=== PATIENT | female | born 1990 | race African-American/Black ===

== ENCOUNTER 2016-08-04 21:49 | Emergency (ER) | payer OTHER ==
[~2016-08-04] VITALS: Ht 160 cm; Wt 84.5 kg
[~2016-08-04 21:49] MED LIST: ALBU17I INH; LEVEMIR SC
[2016-08-04 21:50] VITALS: BP 149/88; PULSE 78; RESP 16; TEMP 97.8; O2SAT 99
[2016-08-04 23:27] VITALS: BP 118/74; PULSE 100; RESP 18; O2SAT 99
[2016-08-04] MEDS ORDERED: SODIUM CHLOR 0.9% 1000 ML INJ 1,000 ML IV SCH (23:37)
--- NOTE | 2016-08-04 23:38 | PD ---
HPI Chief Complaint: GI Complaint Time Seen by Provider: 23:15 Travel History International Travel<30 days: No Contact w/Intl Traveler<30days: No Traveled to known affect area: No History of Present Illness HPI Said 26 year-old woman with a history diabetes who presents to the emergency department complaining of feeling poorly. She'll history diabetes and is not on medicines for quite some time. She took injectable insulin the past. She has not taken it and months because of insurance reasons. She states she was feeling well until about a week ago she started getting headaches. She's been feeling poorly since then. She had nausea and vomiting for the past 3 days. She states she came in today because she just felt overall worse. She also found out she was . Her last menstrual period was July 03. She's never been before. She endorses some vaginal irritation and discharge symptoms times months. She feels like she has a yeast infection. No other complaints. History Past Medical History Narrative Medical Diabetes Asthma Tetanus Vaccination: Unknown Influenza Vaccination: No : 1 Social History Alcohol Use: Yes (RARE) Tobacco Use: No Allergies-Medications (Allergen,Severity, Reaction): Coded Allergies: PEANUTS (Unverified Allergy, Severe, 08/04/16) FEELS BAD Codeine (Verified Allergy, Intermediate, Rash, 08/04/16) Egg Allergy (Unverified Allergy, Intermediate, 08/04/16) FEELS BAD Hydrocodone (Verified Allergy, Intermediate, Itching, 08/04/16) Reported Meds & Prescriptions Reported Meds & Active Scripts Active No Active Prescriptions or Reported Medications Review of Systems Except as stated in HPI: all other systems reviewed are Neg Physical Exam Narrative GENERAL: Well-appearing 26 year-old woman, no acute distress. SKIN: Focused skin assessment warm/dry. HEAD: Atraumatic. Normocephalic. CARDIOVASCULAR: Regular rate and rhythm. No murmur appreciated. RESPIRATORY: No accessory muscle use. Clear to auscultation. Breath sounds equal bilaterally. GASTROINTESTINAL: Abdomen soft, non-tender, nondistended. Hepatic and splenic margins not palpable. MUSCULOSKELETAL: No obvious deformities. No clubbing. No cyanosis. No edema. NEUROLOGICAL: Awake and alert. No obvious cranial nerve deficits. Motor grossly within normal limits. Normal speech. PSYCHIATRIC: Appropriate mood and affect; insight and judgment normal. Data Data Last Documented VS Vital Signs Date Time Temp Pulse Resp B/P Pulse Ox O2 Delivery O2 Flow Rate FiO2 08/04/16 23:27 100 18 118/74 99 Room Air 08/04/16 21:50 97.8 Orders Beta Hcg (Quant/Titer) (08/04/16 23:37) Complete Blood Count With Diff (08/04/16 23:37) Comprehensive Metabolic Panel (08/04/16 23:37) Iv Access Insert/Monitor (08/04/16 23:37) Ecg Monitoring (08/04/16 23:37) Oximetry (08/04/16 23:37) Sodium Chlor 0.9% 1000 Ml Inj (Ns 1000 M (08/04/16 23:37) Sodium Chloride 0.9% Flush (Ns Flush) (08/04/16 23:45) Ed Poc Ultrasound (08/04/16 23:37) Sodium Chlor 0.9% 1000 Ml Inj (Ns 1000 M (08/04/16 23:45) Urinalysis - C+S If Indicated (08/04/16 23:49) Urine Culture (08/04/16 23:30) Labs Laboratory Tests Test 08/04/16 08/04/16 23:25 23:30 White Blood Count 11.0 TH/MM3 Red Blood Count 4.94 MIL/MM3 Hemoglobin 12.3 GM/DL Hematocrit 38.6 % Mean Corpuscular Volume 78.2 FL Mean Corpuscular Hemoglobin 25.0 PG Mean Corpuscular Hemoglobin 32.0 % Concent Red Cell Distribution Width 16.1 % Platelet Count 297 TH/MM3 Mean Platelet Volume 8.9 FL Neutrophils (%) (Auto) 52.3 % Lymphocytes (%) (Auto) 36.8 % Monocytes (%) (Auto) 7.7 % Eosinophils (%) (Auto) 2.4 % Basophils (%) (Auto) 0.8 % Neutrophils # (Auto) 5.8 TH/MM3 Lymphocytes # (Auto) 4.0 TH/MM3 Monocytes # (Auto) 0.8 TH/MM3 Eosinophils # (Auto) 0.3 TH/MM3 Basophils # (Auto) 0.1 TH/MM3 CBC Comment DIFF FINAL Differential Comment Sodium Level 132 MEQ/L Potassium Level 3.4 MEQ/L Chloride Level 96 MEQ/L Carbon Dioxide Level 24.1 MEQ/L Anion Gap 12 MEQ/L Blood Urea Nitrogen 4 MG/DL Creatinine 0.81 MG/DL Estimat Glomerular Filtration 105 ML/MIN Rate Random Glucose 386 MG/DL Calcium Level 9.1 MG/DL Total Bilirubin 0.3 MG/DL Aspartate Amino Transf 77 U/L (AST/SGOT) Alanine Aminotransferase 113 U/L (ALT/SGPT) Alkaline Phosphatase 70 U/L Total Protein 8.0 GM/DL Albumin 3.7 GM/DL Human Chorionic Gonadotropin, 141 MIU/ML Quant Urine Color LIGHT-YELLOW Urine Turbidity CLEAR Urine pH 5.5 Urine Specific Burwell 1.045 Urine Protein NEG mg/dL Urine Glucose (UA) 1000 mg/dL Urine Ketones NEG mg/dL Urine Occult Blood NEG Urine Nitrite NEG Urine Bilirubin NEG Urine Urobilinogen LESS THAN 2.0 MG/DL Urine Leukocyte Esterase LARGE Urine RBC 27 /hpf Urine WBC 41 /hpf Urine Squamous Epithelial 2 /hpf Cells Urine Bacteria RARE /hpf Urine Mucus FEW /lpf Microscopic Urinalysis Comment CULTURE INDICATED MDM Medical Decision Making Medical Screen Exam Complete: Yes Emergency Medical Condition: Yes Interpretation(s) LABS: CBC unremarkable. CMP unremarkable. HCG 141. UA Red blood cells and white blood cells, elevated glucose. Differential Diagnosis Dehydration, infection, electrolyte abnormalities, , other Narrative Course Medical decision making This 26 old woman who presents to the emergency department with untreated diabetes, new , with headache symptoms of headache, vomiting, weakness , abdominal pain, likely related to and dehydration and hyperglycemia. We'll check labs, bedside ultrasound, urinalysis, IV fluids, reassess. Diagnosis Primary Impression: Qualified Code: Z3A.01 - Less than 8 weeks gestation of Additional Impression: Uncontrolled diabetes mellitus Qualified Code: E11.65 - Uncontrolled type 2 diabetes mellitus without complication, with long-term current use of insulin Referrals: Garrett Albarado II, MD 1 week Additional Instructions: Take Levemir 10 units subcutaneous insulin at night as discussed. Check blood sugar twice daily as discussed. Follow-up with an front desk specialist at the first available appointment. Return to the emergency department for any new or worsening symptoms. Med/Other Pt SpecificInfo: Prescription(s) given Scripts Blood Glucose Monitoring W/Device 1 Kit Kit #1 KIT .ROUTE DIRECTED Ref 0 Please dispense one glucometer with testing strips and lancets. Prov:Olegario Bourne MD 08/05/16 Insulin Detemir Inj (Levemir Inj)1,000 unit/ 10 ML Vial10 Units SQ HS #1 VIAL Ref 0 Do not mix with any other Insulin. Prov:Olegario Bourne MD 08/05/16 Disposition: 01 DISCHARGE HOME Condition: Stable Olegario Bourne MD August 04, 2016 23:38
[2016-08-04] MEDS ORDERED: SODIUM CHLOR 0.9% 1000 ML INJ 1,000 ML IV ONE (23:45)
[2016-08-04] MEDS ORDERED: SODIUM CHLORIDE 0.9% FLUSH 10 ML FLUSH IV FLUSH PRN (23:45)
[2016-08-05 00:06] LABS: AUTOMATED NEUTROPHIL # 5.8 TH/MM3 (1.8-7.7); BASOPHIL # 0.1 TH/MM3 (0-0.2); BASOPHIL % 0.8 % (0.0-2.0); EOSINOPHIL # 0.3 TH/MM3 (0-0.4); EOSINOPHIL % 2.4 % (0.0-4.0); HEMATOCRIT 38.6 % (35.0-46.0); HEMO FLAGS DIFF FINAL; LYMPH % 36.8 % (9.0-44.0); MEAN CELL VOLUME 78.2 FL (80.0-100.0); MONO % 7.7 % (0.0-8.0); NEUT % 52.3 % (16.0-70.0); PLATELET COUNT 297 TH/MM3 (150-450); RED BLOOD COUNT 4.94 MIL/MM3 (4.00-5.30); RED CELL DISTRIBUTION WIDTH 16.1 % (11.6-17.2)
[2016-08-05 00:28] LABS: ANION GAP 12 MEQ/L (5-15); AST (GOT) 77 U/L (15-37); BICARBONATE 24.1 MEQ/L (21.0-32.0); BLOOD UREA NITROGEN 4 MG/DL (7-18); CHLORIDE 96 MEQ/L (98-107); GLOMERULAR FILTRATION RATE 105 ML/MIN (>89); POTASSIUM 3.4 MEQ/L (3.5-5.1); SODIUM (NA) 132 MEQ/L (136-145)
[2016-08-05 00:33] LABS: ALKALINE PHOSPHATASE 70 U/L (45-117); ALT (GPT) 113 U/L (10-53); BETA HCG QUANT 141 MIU/ML (0-5); TOTAL BILIRUBIN ADULT 0.3 MG/DL (0.2-1.0)
[2016-08-05 00:52] LABS: BACTERIA, URINE RARE /hpf; BLOOD, URINE NEG (NEG); COMMENT (UR) CULTURE INDICATED; CULTURE IF INDICATED CULTURE INDICATED; GLUCOSE,URINE 1000 mg/dL (NEG); KETONE, URINE NEG (NEG); MUCUS URINE FEW /lpf (OCC); NITRITE,URINE NEG (NEG); PH, URINE 5.5 (5.0-8.5); SQUAMOUS EPITHELIAL CELL URINE 2 /hpf (0-5); URINE COLOR LIGHT-YELLOW (YELLW/STRAW)
[2016-08-05] MEDS ORDERED: INSULIN DETEMIR 100 UNITS/ML VIAL SQ STA (00:58)
[2016-08-05] MEDS ORDERED: LEVEMIR SQ (01:03)
[2016-08-05] MEDS ORDERED: BLOOD GLUCOSE M1 KIT (01:04)
== END 2016-08-05 03:15 | disposition home or self-care (01) ==
LOC: NEPC 21:49
DX: O24.311 Unspecified pre-existing diabetes mellitus in pregnancy, first trimester (principal); E11.65 Type 2 diabetes mellitus with hyperglycemia; O23.41 Unspecified infection of urinary tract in pregnancy, first trimester; B96.1 Klebsiella pneumoniae [K. pneumoniae] as the cause of diseases classified elsewhere; Z3A.01 Less than 8 weeks gestation of pregnancy; Z79.4 Long term (current) use of insulin
CPT/HCPCS: 80053; 81001; 84702; 85025; 87077; 87086; 87186; 96360; 96361; 96372; 99284; J7030

== ENCOUNTER 2016-08-31 11:14 | Inpatient (IN) | payer MEDICAID, OTHER ==
[~2016-08-31 11:14] MED LIST changes: -ALBU17I INH; +BLOOD GLUCOSE M1 KIT; -LEVEMIR SC; +LEVEMIR SQ
[2016-08-31] MEDS ORDERED: GLUCAGON 1 MG/ML VIAL IM PRN (13:15)
[2016-08-31] MEDS ORDERED: DEXTROSE 50% IN WATER 50 ML VIAL(D50) IV PRN (13:15)
[2016-08-31 13:25] VITALS: BP 136/76; PULSE 108; RESP 20; TEMP 98.2; O2SAT 100
--- NOTE | 2016-08-31 13:27 | HHI.HP ---
HPI Chief Complaint uncontrolled diabetes Date Seen: Aug 31, 2016 Travel History International Travel<30 Days: No Contact w/Intl Traveler<30Days: No Known Affected Area: No History of Present Illness HPI 26 yo G1 with iup at 7w2d by u/s today presented for new ob problem visit in office. Pt concerned about discharge that she has had come and go for 3-4 months, yellow, + odor, + itching. She has a h/o CT with neg test or reinfection Dec 2015. Cx collected in clinic; BV on wet prep. Pt diabetic since age 20, Class C diabetic; she has never had good control. She has been off of medications for several months as she was uninsured. Was seen in ED on 07/30/16 and noted to have glucose in 300's. Was given levamir 10 units qhs and told to f/u within a week with ob. She has not been measuring home accucheck over the last month. She has been having headaches for a week. She has been having nausea. She has a h/o asthma; had a recent cold and was given azithromycin. She is allergic to cats and has one as a pet; had an asthma attack 3 days ago, used rescue inhaler w good relief. Para: 0 : 1 History Past Medical History Narrative Medical Class C diabetes Asthma- mild intermittent Mild cervical dysplasia- colpo 05/2015 Obstetric History Obstetric History G1 Past Surgical History Narrative Surgical Breast implants Family History Narrative Family History diabetes, htn Social History Alcohol Use: No Tobacco Use: No Substance Abuse: No Allergies-Medications (Allergen,Severity, Reaction): Coded Allergies: PEANUTS (Unverified Allergy, Severe, 08/04/16) FEELS BAD Codeine (Verified Allergy, Intermediate, Rash, 08/04/16) Egg Allergy (Unverified Allergy, Intermediate, 08/04/16) FEELS BAD Hydrocodone (Verified Allergy, Intermediate, Itching, 08/04/16) Home Meds Active Scripts Blood Glucose Monitoring W/Device 1 Kit Kit #1 KIT .ROUTE DIRECTED Ref 0 Please dispense one glucometer with testing strips and lancets. Prov:Olegario Bourne MD 08/05/16 Insulin Detemir Inj (Levemir Inj)1,000 unit/ 10 ML Vial10 Units SQ HS #1 VIAL Ref 0 Do not mix with any other Insulin. Prov:Olegario Bourne MD 08/05/16 Review of Systems General / Constitutional: No: Fever, Weight Gain, Chills, Other Eyes: No: Diploplia, Blurred Vision, Visual changes, Pain, Photophobia HENT: Headaches, No: Vertigo, Lightheadedness Cardiovascular: No: Irregular Rhythm, Chest Pain or Discomfort, Palpitations, Tachycardia, Syncope, Varicosities, Edema, Cyanosis Respiratory: Cough, No: Short of Breath, Other Gastrointestinal: Nausea, No: Vomiting, Diarrhea Genitourinary: No: Decreased Urinary Output, Oliguria Musculoskeletal: No: Limited ROM, Weakness, Cramping, Edema, Pain Skin: No Rash, No Itching, No Dryness, No Lumps, No Change in Pigmentation, No Change in Nails, No Alopecia, No Lesions Neurologic: No: Weakness, Dizziness, Syncope, Focal Abnormalities, Coordination Problem, Headache, Slurred Speech, Seizures Psychiatric: No: Depression, Suicidal Ideations, Homicidal Ideation Endocrine: No: Heat Intolerance, Cold Intolerance, Polydipsia, Polyuria, Other Physical Exam Vital Signs Date Time Temp Pulse Resp B/P Pulse Ox O2 Delivery O2 Flow Rate FiO2 08/31/16 13:25 98.2 108 20 136/76 100 Narrative GENERAL: Well-nourished, well-developed patient. Obese SKIN: Warm and dry. HEAD: Normocephalic and atraumatic. EYES: No scleral icterus. No injection or drainage. ENT: No nasal drainage noted. Mucous membranes pink. Airway patent. NECK: Supple, trachea midline. No JVD. CARDIOVASCULAR: Regular rate and rhythm without murmurs, gallops, or rubs. RESPIRATORY: Breath sounds equal bilaterally. No accessory muscle use. ABDOMEN/GI: Abdomen soft, non-tender, bowel sounds present, no rebound, no guarding Gravid to 8 weeks size GENITOURINARY: External Genitalia: intact and normal in appearance BUS glands: [-] Cervix:closed thick Membranes: [intact Uterine Contractions: [-] FHT's: + fca on u/s EXTREMITIES: No cyanosis or edema. BACK: Nontender without obvious deformity. No CVA tenderness. NEUROLOGICAL: Awake and alert. Motor and sensory grossly within normal limits. Five out of 5 muscle strength in all muscle groups. Normal speech. Data Data Vital Signs Reviewed: Yes Orders Admit To Inpatient (08/31/16 ) Vital Signs (Adult) KETURAH.QSHIFT (08/31/16 13:10) Activity Oob Ad Theresa (08/31/16 13:10) Diet Ob Consistent Carb (08/31/16 Lunch) Hemoglobin (Hgb) A1c (08/31/16 13:10) Urinalysis - C+S If Indicated (08/31/16 13:10) Comprehensive Metabolic Panel (08/31/16 13:10) Dietary (Dietitian) Consult (08/31/16 ) Consult Firewall Engineer (08/31/16 ) Insulin Human Nph Inj (Novolin N Inj) (09/01/16 08:00) Insulin Human Nph Inj (Novolin N Inj) (08/31/16 17:00) Bedside Glucose KETURAH.CVBG (08/31/16 13:10) Insulin Human Reg Supp Scale (Novolin R (08/31/16 17:00) Bedside Glucose Q15M (08/31/16 13:10) Hypoglycemia 70 Mg/Dl Or < (08/31/16 13:10) Dextrose 50% In Paulette (Vial) Inj (D50w (Vi (08/31/16 13:15) Glucagon Inj (Glucagon Inj) (08/31/16 13:15) Inpatient Certification (08/31/16 ) Specimen To Be Collected PRN (08/31/16 13:10) Insulin Human Regular Inj (Novolin R Inj (09/01/16 08:00) Insulin Human Regular Inj (Novolin R Inj (08/31/16 17:00) ^ Other Nursing Orders (08/31/16 13:20) Total Protein 24hr Urine (08/31/16 13:21) Bedside Glucose . ORDERED (08/31/16 13:21) Acetaminophen (Tylenol) (08/31/16 13:30) Xsguqnec-Zuc-Oughr-Iron Prenat (Stuartna (09/01/16 09:00) Sodium Chloride 0.9% Flush (Ns Flush) (08/31/16 21:00) Sodium Chloride 0.9% Flush (Ns Flush) (08/31/16 13:30) Zolpidem (Ambien) (08/31/16 13:30) Ondansetron Odt (Zofran Odt) (08/31/16 13:30) Ondansetron Inj (Zofran Inj) (08/31/16 13:30) Ob/Psych Drug Screen, Urine (08/31/16 13:21) Assessment/Plan Assessment and Plan 26 yo G1 at 7w2d by u/s today 1) Insulin dependant diabetic being admitted for initiation of nph/reg based on ideal body weight am insulin N14/R7, pm N10/R10 - check fasting and 2 hr pp accucheck and adjust insulin accordingly - 2200 ADA diet, diabetic education and nutrition counseling while in house. ED physician did prescribe glucometer and supplies on 07/30/16 - 24 hour urine collection and [facility] labs for baseline - labs also ordered 2) Asthma- albuterol inhaler. discussed she needs to give cat to someone else as asthma is being exacerbated. Reviewed that asthma can become worse during 3) BV- flagyl, cx pending from clinic Donna Clark MD Aug 31, 2016 13:27
[2016-08-31] MEDS ORDERED: ACETAMINOPHEN 325 MG TAB PO PRN (13:30)
[2016-08-31] MEDS ORDERED: ONDANSETRON HCL 4 MG/2 ML VIAL IV PRN (13:30)
[2016-08-31] MEDS ORDERED: ONDANSETRON ODT 4 MG TAB PO PRN (13:30)
[2016-08-31] MEDS ORDERED: SODIUM CHLORIDE 0.9% FLUSH 10 ML FLUSH IV FLUSH PRN (13:30)
[2016-08-31] MEDS ORDERED: ZOLPIDEM TARTRATE 5 MG TAB PO PRN (13:30)
[2016-08-31] MEDS ORDERED: ALBUTEROL SULFATE 90 MCG/ACT HFA 18 GM INHALER INH PRN (15:45)
[2016-08-31 16:00] VITALS: BP 122/80; PULSE 95; RESP 16; TEMP 96.5; O2SAT 98
[2016-08-31] MEDS: INSULIN HUMAN REGULAR 1,000 UNITS/10 ML VIAL SQ SCH (16:49)
[2016-08-31] MEDS: metroNIDAZOLE 500 MG TAB PO SCH ×2 (16:55→21:00)
[2016-08-31] MEDS: INSULIN HUMAN NPH 1,000 UNITS/10 ML VIAL SQ SCH (17:00)
[2016-08-31 20:00] VITALS: BP 125/74; PULSE 103; RESP 18; TEMP 98.6; O2SAT 98
[2016-08-31 20:20] LABS: AUTOMATED NEUTROPHIL # 7.9 TH/MM3 (1.8-7.7); BASOPHIL % 0.4 % (0.0-2.0); EOSINOPHIL # 0.3 TH/MM3 (0-0.4); EOSINOPHIL % 2.3 % (0.0-4.0); HEMATOCRIT 37.5 % (35.0-46.0); HEMO FLAGS DIFF FINAL; LYMPH % 30.9 % (9.0-44.0); LYMPHOCYTE # 4.1 TH/MM3 (1.0-4.8); MEAN CELL VOLUME 77.1 FL (80.0-100.0); MEAN CORPUSCULAR HEMOGLOBIN 24.6 PG (27.0-34.0); MONO % 6.7 % (0.0-8.0); NEUT % 59.7 % (16.0-70.0); PLATELET COUNT 334 TH/MM3 (150-450); RED BLOOD COUNT 4.86 MIL/MM3 (4.00-5.30); RED CELL DISTRIBUTION WIDTH 16.2 % (11.6-17.2); WHITE BLOOD COUNT 13.2 TH/MM3 (4.0-11.0)
[2016-08-31 20:49] LABS: ANION GAP 11 MEQ/L (5-15); AST (GOT) 45 U/L (15-37); BICARBONATE 23.8 MEQ/L (21.0-32.0); BLOOD UREA NITROGEN 8 MG/DL (7-18); CHLORIDE 99 MEQ/L (98-107); GLOMERULAR FILTRATION RATE 152 ML/MIN (>89); POTASSIUM 3.3 MEQ/L (3.5-5.1); SODIUM (NA) 134 MEQ/L (136-145)
[2016-08-31 20:50] LABS: ALT (GPT) 94 U/L (10-53)
[2016-08-31 20:52] LABS: ALKALINE PHOSPHATASE 56 U/L (45-117); TOTAL BILIRUBIN ADULT 0.3 MG/DL (0.2-1.0)
[2016-08-31 20:58] LABS: FREE T4 1.16 NG/DL (0.76-1.46)
[2016-08-31 22:33] LABS: HEMOGLOBIN A1a 1.4 %; HEMOGLOBIN A1b 1.3 %; HEMOGLOBIN Ao 76.3 %; HEMOGLOBIN F 1.8 %; HEMOGLOBIN LA1C 2.6 %; HEMOGLOBIN P3 4.3 %
[2016-08-31] MEDS: INSULIN NovoLIN REGULAR SUPPLEMENTAL SCALE SQ SCH (22:52)
[2016-08-31] MEDS: SODIUM CHLORIDE 0.9% FLUSH 10 ML FLUSH IV FLUSH SCH (22:53)
[2016-09-01] VITALS: BP 117/56; PULSE 82; RESP 16; TEMP 97.5; O2SAT 100
[2016-09-01] MEDS: INSULIN HUMAN NPH 1,000 UNITS/10 ML VIAL SQ SCH ×2 (08:00→17:38)
[2016-09-01] MEDS: INSULIN HUMAN REGULAR 1,000 UNITS/10 ML VIAL SQ SCH ×2 (08:00→17:37)
[2016-09-01] MEDS: INSULIN NovoLIN REGULAR SUPPLEMENTAL SCALE SQ SCH ×3 (08:00→17:00)
[2016-09-01] MEDS: MULTIVIT/MIN/PREN/FOL AC/IRON PRENATAL TAB PO SCH (08:46)
[2016-09-01] MEDS: metroNIDAZOLE 500 MG TAB PO SCH ×2 (08:46→20:33)
[2016-09-01] MEDS: SODIUM CHLORIDE 0.9% FLUSH 10 ML FLUSH IV FLUSH SCH ×2 (08:46→20:33)
[2016-09-01 08:50] VITALS: BP 114/59; PULSE 68; RESP 16; TEMP 99; O2SAT 99
[2016-09-01 12:00] VITALS: BP 113/67; PULSE 96; RESP 16; TEMP 96.7; O2SAT 98
[2016-09-01 16:40] VITALS: BP 123/58; PULSE 103; RESP 16; TEMP 97.2; O2SAT 100
[2016-09-01] MEDS ORDERED: INSULIN HUMAN REGULAR 1,000 UNITS/10 ML VIAL SQ ONE (17:30)
[2016-09-01 20:00] VITALS: BP 111/65; PULSE 98; RESP 18; TEMP 99.1; O2SAT 98
[2016-09-02] VITALS: BP 123/71; PULSE 91; RESP 18; TEMP 99.1; O2SAT 98
[2016-09-02 04:00] VITALS: BP 126/69; PULSE 80; RESP 18; TEMP 98.6; O2SAT 99
[2016-09-02] MEDS: INSULIN HUMAN REGULAR 1,000 UNITS/10 ML VIAL SQ SCH ×2 (08:00→17:00)
[2016-09-02] MEDS: INSULIN NovoLIN REGULAR SUPPLEMENTAL SCALE SQ SCH ×3 (08:00→17:00)
[2016-09-02] MEDS: MULTIVIT/MIN/PREN/FOL AC/IRON PRENATAL TAB PO SCH (08:23)
[2016-09-02] MEDS: metroNIDAZOLE 500 MG TAB PO SCH ×2 (08:23→21:55)
[2016-09-02] MEDS: SODIUM CHLORIDE 0.9% FLUSH 10 ML FLUSH IV FLUSH SCH ×2 (08:24→21:00)
[2016-09-02 08:42] VITALS: BP_SYST 103; BP_SYST 98; BP_DIAS 52; BP_DIAS 57; PULSE 83; RESP 16; TEMP 98; O2SAT 98
[2016-09-02] MEDS: INSULIN HUMAN NPH 1,000 UNITS/10 ML VIAL SQ SCH ×2 (09:15→17:00)
--- NOTE | 2016-09-02 09:42 | PD.OB.ANTE ---
Subjective Diagnosis: (1) Uncontrolled diabetes mellitus (2) Interval History This note is for long visit on SaturdaySeptember 01 Patient very cooperative with nurses and me. Desires to get diabetes under control She was a [employer] student who dropped out after two years due to monetary issues and has significant loans. She was working until this diagnosis of severe IDDM and early . She has lost her insurance and has been unable to afford insulin. FOB not involved. Family support sounds variable. She hints at severe familial stress and complications. Hgb A1c was 12. Started on a baseline regimen Saturday and leaving alone on Saturday to obtain some baseline response Documented single IUP in our office. 7 + weeks EGA Too early to assess heart, Risk of malformations significant. Plan is to keep several days and determine a regimen. Also to get Healthy Start and Case manaagement involved to cover her medications and assess social well being. Objective Vital Signs Vital Signs Date Time Temp Pulse Resp B/P Pulse Ox O2 Delivery O2 Flow Rate FiO2 09/02/16 08:42 98.0 83 16 98/52 98 103/57 09/02/16 04:00 98.6 80 18 126/69 99 09/02/16 00:00 99.1 91 18 123/71 98 09/01/16 20:00 99.1 98 18 111/65 98 09/01/16 16:40 97.2 103 16 123/58 100 09/01/16 12:00 96.7 96 16 113/67 98 Physical Exam GENERAL: Well-nourished, well-developed patient. CARDIOVASCULAR: Regular rate and rhythm without murmurs, gallops, or rubs. RESPIRATORY: Breath sounds equal bilaterally. No accessory muscle use. ABDOMEN/GI: Abdomen soft, non-tender. Fundus: [-] GENITOURINARY: External Genitalia: intact and normal in appearance Cervix: [-] Dilatation: [-] Effacement: [-] Station: [-] Presentation: [-] Membranes: [-] Uterine Contractions: [-] FHT's: Category: [-] Baseline: [-] Reactive: [-] Variability: [-] Decels: [-] EXTREMITIES: No cyanosis or edema, non-tender, without signs of DVT. Assessment and Plan Assessment and Plan 26 yo G1 at 7w2d by u/s today 1) Insulin dependant diabetic being admitted for initiation of nph/reg based on ideal body weight am insulin N14/R7, pm N10/R10 - check fasting and 2 hr pp accucheck and adjust insulin accordingly - 2200 ADA diet, diabetic education and nutrition counseling while in house. ED physician did prescribe glucometer and supplies on 07/30/16 - 24 hour urine collection and [facility] labs for baseline - labs also ordered 2) Asthma- albuterol inhaler. discussed she needs to give cat to someone else as asthma is being exacerbated. Reviewed that asthma can become worse during 3) BV- flagyl, cx pending from clinic Pegyg Bradshaw MD Sep 02, 2016 09:42
--- NOTE | 2016-09-02 11:06 | PD.OB.ANTE ---
Subjective Diagnosis: (1) Uncontrolled diabetes mellitus (2) Interval History Nauseated early am either from low suogar or sugars ranged 145-280 (covered with 6 reg) She has not been below 300 for some time and is encouraged Objective Vital Signs Vital Signs Date Time Temp Pulse Resp B/P Pulse Ox O2 Delivery O2 Flow Rate FiO2 09/02/16 08:42 98.0 83 16 98/52 98 103/57 09/02/16 04:00 98.6 80 18 126/69 99 09/02/16 00:00 99.1 91 18 123/71 98 09/01/16 20:00 99.1 98 18 111/65 98 09/01/16 16:40 97.2 103 16 123/58 100 09/01/16 12:00 96.7 96 16 113/67 98 Physical Exam GENERAL: Well-nourished, well-developed patient. CARDIOVASCULAR: Regular rate and rhythm without murmurs, gallops, or rubs. RESPIRATORY: Breath sounds equal bilaterally. No accessory muscle use. ABDOMEN/GI: Abdomen soft, non-tender. EXTREMITIES: No cyanosis or edema, non-tender, without signs of DVT. Assessment and Plan Problem List: (1) Uncontrolled diabetes mellitus Status: Acute (2) Status: Acute Assessment and Plan 26 yo G1 at 7w4 1) Insulin dependant diabetic being admitted for initiation of nph/reg based on ideal body weight am insulin N14/R7, pm N10/R10 - check fasting and 2 hr pp accucheck and adjust insulin accordingly - 2200 ADA diet, diabetic education and nutrition counseling while in house. ED physician did prescribe glucometer and supplies on 07/30/16 - 24 hour urine collection and [facility] labs for baseline obtaining haelthy start and case management to assure access to medications. staying through saturday or saturday Peggy Bradshaw MD Sep 02, 2016 11:05
[2016-09-02 12:48] VITALS: BP_SYST 108; BP_SYST 113; BP_DIAS 64; BP_DIAS 78; PULSE 80; PULSE 81; RESP 16; TEMP 97.2; TEMP 97.4; O2SAT 96; O2SAT 98
[2016-09-02 16:00] VITALS: BP 120/65; PULSE 103; RESP 16; TEMP 96.9; O2SAT 97
[2016-09-02 20:00] VITALS: BP 118/68; PULSE 88; RESP 18; TEMP 97.7; O2SAT 98
[2016-09-03] VITALS: BP 123/68; PULSE 91; RESP 18; TEMP 97; O2SAT 98
[2016-09-03 05:00] VITALS: BP 119/56; PULSE 83; RESP 18; TEMP 96.4; O2SAT 97
[2016-09-03 08:00] VITALS: BP 117/80; PULSE 97; RESP 16; TEMP 97.4; O2SAT 99
--- NOTE | 2016-09-03 08:49 | PD.OB.ANTE ---
Subjective Diagnosis: (1) Uncontrolled diabetes mellitus (2) Interval History no new complaints, insulin 14/7 01/08, FS improving 151/196 198/159. A1 C was 12 Objective Vital Signs Vital Signs Date Time Temp Pulse Resp B/P Pulse Ox O2 Delivery O2 Flow Rate FiO2 09/03/16 08:00 97.4 97 16 117/80 99 09/03/16 05:00 96.4 83 18 119/56 97 09/03/16 00:00 97.0 91 18 123/68 98 09/02/16 20:00 97.7 88 18 118/68 98 09/02/16 16:00 96.9 103 16 120/65 97 09/02/16 12:48 97.4 81 16 108/64 98 Intake & Output 09/03/16 09/03/16 07:00 19:00 Intake Total 1440 ml Balance 1440 ml Intake Oral 1440 ml # Voids 6 Lab & Micro Results noted Physical Exam GENERAL: Well-nourished, well-developed patient. CARDIOVASCULAR: Regular rate and rhythm without murmurs, gallops, or rubs. RESPIRATORY: Breath sounds equal bilaterally. No accessory muscle use. ABDOMEN/GI: Abdomen soft, non-tender. Fundus: [-] GENITOURINARY: External Genitalia: intact and normal in appearance Cervix: [-] Dilatation: [-] Effacement: [-] Station: [-] Presentation: [-] Membranes: [-] Uterine Contractions: [-] FHT's: Category: [-] Baseline: [-] Reactive: [-] Variability: [-] Decels: [-] EXTREMITIES: No cyanosis or edema, non-tender, without signs of DVT. Assessment and Plan Problem List: (1) Uncontrolled diabetes mellitus Status: Acute (2) Status: Acute Assessment and Plan 26 yo G1 at 7w5 1) Insulin dependant diabetic being admitted for initiation of nph/reg based on ideal body weight am insulin N14/R7, pm N10/R10 - check fasting and 2 hr pp accucheck and adjust insulin accordingly - 2200 ADA diet, diabetic education and nutrition counseling while in house. ED physician did prescribe glucometer and supplies on 07/30/16 - 24 hour urine collection and [facility] labs for baseline obtaining haelthy start and case management to assure access to medications. staying through saturday or saturday will increase insulin to 1603/12 Lisa Aguillon MD Sep 03, 2016 08:49
[2016-09-03] MEDS ORDERED: METR-1 PO (08:51)
--- NOTE | 2016-09-03 08:52 | HHI.DCPOC ---
Discharge Care Plan Your Health Problems Are: Fluctuating blood sugars Report Symptoms to Your Doctor -Temperature above 100.5 degrees -Redness, of incision or excessive or foul smelling drainage -Unusual pain or calf pain -Increased vaginal bleeding -Painful or difficulty urinating -Feelings of extreme sadness or anxiety after 2 weeks Goals to Promote Your Health * To prevent worsening of your condition and complications * To maintain your health at the optimal level Directions to Meet Your Goals Take your medications as prescribed Follow your dietary instruction Follow activity as directed Ensure plenty of rest for recovery Drink fluids for hydration Keep your appointments as scheduled Take your immunizations and boosters as scheduled If your symptoms worsen call your PCP, if no PCP go to Urgent Care Center or Emergency Room Smoking is Dangerous to Your Health. Avoid second hand smoke Call the 24-hour crisis hotline for domestic abuse at Lisa Aguillon MD Sep 03, 2016 08:52
--- NOTE | 2016-09-03 09:24 | PD.PN.STU ---
Subjective Remarks Progress: 26 y/o sbf at 7w 5d EGA by U/S presents on day three of admission for glycemic control due to IDDM in . . Pt reports she is still feeling slightly "nauseous and crappy," but is improving since yesterday. Pt also again expressed how much stress she was dealing with in her life, and expressed a desire to see a therapist or counselor to talk about her issues if covered. Pt says that her glucose in the last day has been in the 150-190 mg/ dL range after eating. She hasn't been above 200 mg/dL in the last 24 hrs, which is significant improvement for her. Pt states that she has not yet seen Case Management, Commuter Pilot, or Diabetic Car Dropper. Pt also asked about establishing contact with [facility]. Pt also states that Dr. Aguillon would like to move up her appointment with Dr. Freeman to this week or next instead of 09/20/16 at [facility] due to lack of PCP. Pt bedside blood glucose this morning was 147 mg/dL Objective Vitals Vital Signs Date Time Temp Pulse Resp B/P Pulse Ox O2 Delivery O2 Flow Rate FiO2 09/03/16 08:00 97.4 97 16 117/80 99 09/03/16 05:00 96.4 83 18 119/56 97 09/03/16 00:00 97.0 91 18 123/68 98 09/02/16 20:00 97.7 88 18 118/68 98 09/02/16 16:00 96.9 103 16 120/65 97 09/02/16 12:48 97.4 81 16 108/64 98 Result Diagram: 08/31/16193508/31/161922 Objective Remarks GENERAL: Pleasant, well appearing, well nourished black female CARDIOVASCULAR: Regular rate and rhythm without murmurs, gallops, or rubs. RESPIRATORY: Breath sounds equal bilaterally. No accessory muscle use. GASTROINTESTINAL: Abdomen soft, non-tender, nondistended. MUSCULOSKELETAL: No cyanosis, or edema. Medications and IVs Current Medications Medications (Trade) Dose Ordered Sig/Venkata Route Start Time Stop Time Status Last Admin (NovoLIN R SUPPLEMENTAL SCALE) 1 TIDAC SQ 08/31/16 17:00 09/02/16 17:00 (D50w (Vial) Inj) 50 ml UNSCH PRN IV 08/31/16 13:15 (Glucagon Inj) 1 mg STAT PRN IM 08/31/16 13:15 (Tylenol) 650 mg Q4H PRN PO 08/31/16 13:30 09/01/16 08:46 (Stuartnatal Plus 3 ) 1 tab DAILY PO 09/01/16 09:00 09/02/16 08:23 (NS Flush) 2 ml BID IV FLUSH 08/31/16 21:00 09/02/16 21:00 (NS Flush) 2 ml UNSCH PRN IV FLUSH 08/31/16 13:30 (Ambien) 5 mg HS PRN PO 08/31/16 13:30 (Zofran Odt) 4 mg Q6H PRN PO 08/31/16 13:30 (Zofran Inj) 4 mg Q6H PRN IV 08/31/16 13:30 (Ventolin Hfa Inh) 2 puff Q4H PRN INH 08/31/16 15:45 (Flagyl) 500 mg Q12HR PO 08/31/16 15:45 09/02/16 21:55 (NovoLIN N INJ) 12 units DAILY@17 SQ 09/03/16 17:00 (NovoLIN N INJ) 16 units DAILY@08 SQ 09/03/16 09:00 (NovoLIN R INJ) 12 units DAILY@17 SQ 09/03/16 17:00 (NovoLIN R INJ) 9 units DAILY@08 SQ 09/03/16 09:00 A/P Assessment and Plan Problem List: (1) Uncontrolled diabetes mellitus Status: Acute (2) Status: Acute Assessment and Plan 26 yo G1 at 7w5 1) Insulin dependant diabetic on day three of admission for NPH/regular insulin regimen based on ideal body weight, morning insulin N14/R7, nighttime N10/R10, possible increase to morning to 16/9 and evening 12/12 - continue check fasting and 2 hr pp accucheck and adjust insulin accordingly - 2200 ADA diet in house. ED physician did prescribe glucometer and supplies on 07/30/16 - Obtaining diabetic education and nutrition counseling . - Obtaining 24 hour urine collection and pih labs for baseline - Obtaining healthy start and case management to assure access to medications. Pt will be staying until Saturday - Obtaining counselor/therapist consult for patient's significant life stress. Marty Lovell M3 Sep 03, 2016 09:24 (NovoLIN N INJ) 16 units DAILY@08 SQ 09/03/16 09:00 (NovoLIN R INJ) 12 units DAILY@17 SQ 09/03/16 17:00 (NovoLIN R INJ) 9 units DAILY@08 SQ 09/03/16 09:00 A/P Assessment and Plan Problem List: (1) Uncontrolled diabetes mellitus Status: Acute (2) Status: Acute Assessment and Plan 26 yo G1 at 7w4 1) Insulin dependant diabetic being admitted for initiation of nph/reg based on ideal body weight am insulin N14/R7, pm N10/R10 - check fasting and 2 hr pp accucheck and adjust insulin accordingly - 2200 ADA diet, diabetic education and nutrition counseling while in house. ED physician did prescribe glucometer and supplies on 07/30/16 - 24 hour urine collection and pih labs for baseline obtaining haelthy start and case management to assure access to medications. staying through saturday or saturday Marty Lovell M3 Sep 03, 2016 09:24
[2016-09-03] MEDS: metroNIDAZOLE 500 MG TAB PO SCH ×2 (09:34→20:31)
[2016-09-03] MEDS: MULTIVIT/MIN/PREN/FOL AC/IRON PRENATAL TAB PO SCH (09:34)
[2016-09-03] MEDS: INSULIN HUMAN REGULAR 1,000 UNITS/10 ML VIAL SQ SCH ×2 (09:42→18:13)
[2016-09-03] MEDS: INSULIN NovoLIN REGULAR SUPPLEMENTAL SCALE SQ SCH ×3 (09:43→18:14)
[2016-09-03] MEDS: INSULIN HUMAN NPH 1,000 UNITS/10 ML VIAL SQ SCH ×2 (09:44→18:14)
[2016-09-03] MEDS: SODIUM CHLORIDE 0.9% FLUSH 10 ML FLUSH IV FLUSH SCH ×2 (09:45→20:32)
[2016-09-03 18:30] VITALS: BP 111/70; PULSE 95; RESP 16; TEMP 97.1; O2SAT 98
[2016-09-03 20:45] VITALS: BP 108/72; PULSE 90; RESP 18; TEMP 98; O2SAT 98
[2016-09-04 00:20] VITALS: BP 107/70; PULSE 85; RESP 16; TEMP 97.2; O2SAT 98
[2016-09-04 05:00] VITALS: BP 100/59; PULSE 93; RESP 16; TEMP 98.1; O2SAT 98
[2016-09-04 08:00] VITALS: BP 105/71; PULSE 90; RESP 15; TEMP 98.1; O2SAT 98
[2016-09-04] MEDS: INSULIN NovoLIN REGULAR SUPPLEMENTAL SCALE SQ SCH ×3 (08:00→17:00)
--- NOTE | 2016-09-04 08:02 | PD.OB.ANTE ---
Subjective Diagnosis: (1) Uncontrolled diabetes mellitus (2) Interval History HD 5 Notes rapidly normalizing sugars. Highest was 140 yesterday. She has not yet received a glucometer, accucheck log or strips/lancets to take home still wants to see psychiatry for dysphoria situational depression I am with sertraline, buspirinone, escitalopram... Still needs to see healthy start mild nausea mild elevations in LFTS with negative serology no cramps, bleeding Objective Vital Signs Vital Signs Date Time Temp Pulse Resp B/P Pulse Ox O2 Delivery O2 Flow Rate FiO2 09/04/16 05:00 98.1 93 16 100/59 98 09/04/16 00:20 97.2 85 16 107/70 98 09/03/16 20:45 98.0 90 18 108/72 98 09/03/16 18:30 97.1 95 16 111/70 98 09/03/16 08:00 97.4 97 16 117/80 99 Physical Exam GENERAL: Well-nourished, well-developed patient. CARDIOVASCULAR: Regular rate and rhythm without murmurs, gallops, or rubs. RESPIRATORY: Breath sounds equal bilaterally. No accessory muscle use. ABDOMEN/GI: Abdomen soft, non-tender. Fundus: [-] GENITOURINARY: External Genitalia: intact and normal in appearance Cervix: [-] Dilatation: [-] Effacement: [-] Station: [-] Presentation: [-] Membranes: [-] Uterine Contractions: [-] FHT's: Category: [-] Baseline: [-] Reactive: [-] Variability: [-] Decels: [-] EXTREMITIES: No cyanosis or edema, non-tender, without signs of DVT. Assessment and Plan Problem List: (1) Uncontrolled diabetes mellitus Status: Acute (2) Status: Acute Assessment and Plan 26 yo G1 at 7w6 1) Insulin dependant diabetic being admitted for initiation of nph/reg based on ideal body weight am insulin N14/R7, pm N10/R10 - check fasting and 2 hr pp accucheck and adjust insulin accordingly - 2200 ADA diet, diabetic education and nutrition counseling while in house. ED physician did prescribe glucometer and supplies on 07/30/16 - 24 hour urine collection and pih labs for baseline obtaining haelthy start and case management to assure access to medications. staying for psych and healthy start evaluations must go home with glucometer and log book. will increase insulin to 15/12 03/12 Peggy Bradshaw MD Sep 04, 2016 08:02
[2016-09-04] MEDS: metroNIDAZOLE 500 MG TAB PO SCH ×2 (08:24→20:26)
[2016-09-04] MEDS: MULTIVIT/MIN/PREN/FOL AC/IRON PRENATAL TAB PO SCH (08:24)
[2016-09-04] MEDS: INSULIN HUMAN NPH 1,000 UNITS/10 ML VIAL SQ SCH ×2 (08:28→17:34)
[2016-09-04] MEDS: INSULIN HUMAN REGULAR 1,000 UNITS/10 ML VIAL SQ SCH ×2 (08:28→17:32)
[2016-09-04] MEDS: SODIUM CHLORIDE 0.9% FLUSH 10 ML FLUSH IV FLUSH SCH ×2 (08:30→20:26)
[2016-09-04 12:00] VITALS: BP 106/69; PULSE 90; RESP 16; TEMP 98.5; O2SAT 98
--- NOTE | 2016-09-04 12:10 | PD.CONS ---
Provisional Diagnosis Admission Date Aug 31, 2016 at 12:07 [place] I. Adjustment disorder with depressed mood History of Present Illness Service Psychiatry Consult Requested By Primary Care Physician Seema Stephenson M.D. HPI Patient seen [id number] but did not wish to speak with this physician for long. She preferred to be on the telephone. She does admit to some symptoms of depression, including depressed mood, irritability and tearfulness. She denies any suicidal or homicidal ideation, plan or intention. Her cognition is intact and she exhibits no psychotic symptoms. She is requesting antidepressant medication and this physician suggested Prozac. Patient was in agreement. Review of Systems Except as stated in HPI: all other systems reviewed are Neg Past Family Social History Coded Allergies: PEANUTS (Unverified Allergy, Severe, 08/04/16) FEELS BAD Codeine (Verified Allergy, Intermediate, Rash, 08/04/16) Egg Allergy (Unverified Allergy, Intermediate, 08/04/16) FEELS BAD Hydrocodone (Verified Allergy, Intermediate, Itching, 08/04/16) Active Scripts Metronidazole (Flagyl)500 Mg Upj097 Mg PO Q12HR 4 Days Ref 0 Prov:Lisa Aguillon MD 09/03/16 Blood Glucose Monitoring W/Device 1 Kit Kit #1 KIT .ROUTE DIRECTED Ref 0 Please dispense one glucometer with testing strips and lancets. Prov:Olegario Bourne MD 08/05/16 Insulin Detemir Inj (Levemir Inj)1,000 unit/ 10 ML Vial10 Units SQ HS #1 VIAL Ref 0 Do not mix with any other Insulin. Prov:Olegario Bourne MD 08/05/16 Current Medications Medications (Trade) Dose Ordered Sig/Venkata Route Start Time Stop Time Status Last Admin (NovoLIN R SUPPLEMENTAL SCALE) 1 TIDAC SQ 08/31/16 17:00 09/03/16 18:14 (D50w (Vial) Inj) 50 ml UNSCH PRN IV 08/31/16 13:15 (Glucagon Inj) 1 mg STAT PRN IM 08/31/16 13:15 (Tylenol) 650 mg Q4H PRN PO 08/31/16 13:30 09/01/16 08:46 (Stuartnatal Plus 3 ) 1 tab DAILY PO 09/01/16 09:00 09/04/16 08:24 (NS Flush) 2 ml BID IV FLUSH 08/31/16 21:00 09/04/16 08:30 (NS Flush) 2 ml UNSCH PRN IV FLUSH 08/31/16 13:30 (Ambien) 5 mg HS PRN PO 08/31/16 13:30 (Zofran Odt) 4 mg Q6H PRN PO 08/31/16 13:30 (Zofran Inj) 4 mg Q6H PRN IV 08/31/16 13:30 (Ventolin Hfa Inh) 2 puff Q4H PRN INH 08/31/16 15:45 (Flagyl) 500 mg Q12HR PO 08/31/16 15:45 09/04/16 08:24 (NovoLIN N INJ) 12 units DAILY@17 SQ 09/03/16 17:00 09/03/16 18:14 (NovoLIN N INJ) 16 units DAILY@08 SQ 09/03/16 09:00 09/04/16 08:28 (NovoLIN R INJ) 12 units DAILY@17 SQ 09/03/16 17:00 09/03/16 18:13 (NovoLIN R INJ) 9 units DAILY@08 SQ 09/03/16 09:00 09/04/16 08:28 Family History Positive for mood disorders and anxiety disorders in first-degree family relatives. Social History Denies alcohol or substance abuse. Does report she has family support. Not currently employed. Patient's Strengths (min. 2) Resilient and has access to healthcare. Physical Exam Vital Signs Vital Signs Date Time Temp Pulse Resp B/P Pulse Ox O2 Delivery O2 Flow Rate FiO2 09/04/16 08:00 98.1 90 15 105/71 98 I/O 09/03/16 09/03/16 09/04/16 08:00 16:00 00:00 Intake Total 1200 ml 480 ml Balance 1200 ml 480 ml Mental Status Examination Speech: Unremarkable Orientation: x3 Memory: Unremarkable Thought Process: Organized, Goal Directed Thought Content: Unremarkable Hallucination Type: None Attention and Concentration: Good Suicidal Ideation: No Previous Suicide Attempts: No Homicidal Ideation: No Previous Homicide Attempts: No Insight: Fair Judgment: WNL Affect: Good Mood: Appropriate Motor Activity: Normal gait Assessment & Plan Problem List: (1) Adjustment disorder with depressed mood ICD Code: F43.21 Assessment & Plan Estimated LOS: days patient will be started on Prozac. This antidepressant has been studied with and breast-feeding and although it does apparently he had into the breast milk, it is not associated with problems or congenital issues. As is the case with all antidepressants, minimal studies have been conducted to to assess for teratogenic properties. Lawson Hoyos MD Sep 04, 2016 12:09
[2016-09-04 16:00] VITALS: BP 111/69; PULSE 80; RESP 16; TEMP 97.1; O2SAT 98
[2016-09-04 20:00] VITALS: BP 111/65; PULSE 92; RESP 18; TEMP 97.5; O2SAT 97
[2016-09-04] MEDS ORDERED: FLUoxetine HCL 20 MG CAP PO SCH (21:00)
[2016-09-05] VITALS: BP 114/69; PULSE 85; RESP 18; TEMP 98.4; O2SAT 98
[2016-09-05 04:00] VITALS: BP 101/66; PULSE 96; RESP 18; TEMP 98; O2SAT 96
[2016-09-05 07:30] VITALS: BP 108/61; PULSE 87; RESP 20; TEMP 97.3; O2SAT 98
[2016-09-05] MEDS: INSULIN NovoLIN REGULAR SUPPLEMENTAL SCALE SQ SCH (08:00)
[2016-09-05] MEDS: MULTIVIT/MIN/PREN/FOL AC/IRON PRENATAL TAB PO SCH (09:04)
[2016-09-05] MEDS: metroNIDAZOLE 500 MG TAB PO SCH (09:04)
[2016-09-05] MEDS: INSULIN HUMAN NPH 1,000 UNITS/10 ML VIAL SQ SCH (09:08)
[2016-09-05] MEDS: INSULIN HUMAN REGULAR 1,000 UNITS/10 ML VIAL SQ SCH (09:09)
--- NOTE | 2016-09-05 09:23 | PD.OB.ANTE ---
Subjective Diagnosis: (1) Uncontrolled diabetes mellitus (2) Interval History Now about 8 weeks mild NV but overall feels much better highest sugars in 140'a --can now tweak at home Objective Vital Signs Vital Signs Date Time Temp Pulse Resp B/P Pulse Ox O2 Delivery O2 Flow Rate FiO2 09/05/16 04:00 98.0 96 18 101/66 96 09/05/16 00:00 98.4 85 18 114/69 98 09/04/16 20:00 97.5 92 18 111/65 97 09/04/16 16:00 97.1 80 16 111/69 98 09/04/16 12:00 98.5 90 16 106/69 98 Intake & Output 09/05/16 09/05/16 07:00 19:00 Intake Total 120 ml Output Total 850 ml Balance -730 ml Intake Oral 120 ml Output Urine Total 850 ml # Bowel Movements 0 Physical Exam GENERAL: Well-nourished, well-developed patient. CARDIOVASCULAR: Regular rate and rhythm without murmurs, gallops, or rubs. RESPIRATORY: Breath sounds equal bilaterally. No accessory muscle use. ABDOMEN/GI: Abdomen soft, non-tender. Fundus: [-] GENITOURINARY: External Genitalia: intact and normal in appearance Cervix: [-] Dilatation: [-] Effacement: [-] Station: [-] Presentation: [-] Membranes: [-] Uterine Contractions: [-] FHT's: Category: [-] Baseline: [-] Reactive: [-] Variability: [-] Decels: [-] EXTREMITIES: No cyanosis or edema, non-tender, without signs of DVT. Assessment and Plan Problem List: (1) Uncontrolled diabetes mellitus Status: Acute (2) Status: Acute Assessment and Plan 26 yo G1 at 8 initial A1c 12-- with no treatment ongoing. now on a regimen and voices understanding and compliance desires to consider SSI in future but not now will journal Has sugar log but may not have correct glucometer for insurance Once confirmed can go home and return to office Saturday am Peggy Bradshaw MD Sep 05, 2016 09:23
--- NOTE | 2016-09-05 09:25 | HHI.DCPOC ---
Discharge Care Plan Report Symptoms to Your Doctor -Temperature above 100.5 degrees -Redness, of incision or excessive or foul smelling drainage -Unusual pain or calf pain -Increased vaginal bleeding -Painful or difficulty urinating -Feelings of extreme sadness or anxiety after 2 weeks Goals to Promote Your Health * To prevent worsening of your condition and complications * To maintain your health at the optimal level Directions to Meet Your Goals Take your medications as prescribed Follow your dietary instruction Follow activity as directed Ensure plenty of rest for recovery Drink fluids for hydration Keep your appointments as scheduled Take your immunizations and boosters as scheduled If your symptoms worsen call your PCP, if no PCP go to Urgent Care Center or Emergency Room Smoking is Dangerous to Your Health. Avoid second hand smoke Call the 24-hour crisis hotline for domestic abuse at Peggy Bradshaw MD Sep 05, 2016 09:25
[2016-09-05 11:30] VITALS: BP 115/68; PULSE 98; RESP 20; TEMP 99; O2SAT 97
--- NOTE | 2016-09-28 22:58 | MD ---
cc: ALEX MARCOS ADMISSION DATE: 08/31/2016 DISCHARGE DATE: 09/05/2016 REASON FOR ADMISSION: 7-1/2-week intrauterine with uncontrolled insulin dependent diabetes. HISTORY OF PRESENT ILLNESS: The patient is a 26-year-old single black female 1, para 0 who was seen in our office for a new problem. She has been diabetic since the age of 20 and originally was a [employer] student. She left school because of several jobs and not doing well, lost her insurance and has not been obtaining insulin or monitoring her sugars for her some time now. At the time of admission, her hemoglobin A1c was 12. She was admitted for diabetic evaluation and beginning of treatment. She had been working until her diagnosis of the severe insulin-dependent diabetes mellitus and early . The father of the baby is not involved. She has some family support. HOSPITAL COURSE: At admission, she was started on a baseline insulin regimen. Ultrasound showed a viable 7-1/2 week , too early to look for any type of congenital anomalies. Over the days that she was in the hospital, her insulin was gradually adjusted to bring down her average sugars into the 130s post-prandial and 100s in the a.m. She has had no other chronic or systemic diseases but does acknowledge significant depression and dysphoria and asked to see a counselor during her hospitalization. She does not smoke, drink or use illicit drugs. She has had no surgeries. She has had no prior pregnancies. She did have trichomonas which was treated. She has had no history of abnormal Pap smears. A social consult was ordered. On physical she was a mildly overweight black female in no acute distress, afebrile with stable vital signs. Her lungs were clear. Her heart was regular. Abdomen was benign. Cervix was nulliparous. Pap smear had been obtained. Her trich had been treated. Her extremities showed no edema. Good pedal pulses and normal deep tendon reflexes. CONDITION AT DISCHARGE: Stable. DISCHARGE DIAGNOSIS: 1. an 8-week intrauterine with insulin dependent diabetes working toward control. 2. Mild dysphoria and depression addressed with Prozac. PLAN: The plan was to proceed with care at [facility] and follow up in the next week. MD HUONG Gillis/JCC /9:36 AM /10:52 PM
== END 2016-09-05 13:00 | disposition home or self-care (01) | DRG 781 ==
LOC: HOCA 12:07
PROVIDERS: ADMIT Obstetrics & Gynecology; ATTEND Obstetrics & Gynecology
DX: O24.111 Pre-existing type 2 diabetes mellitus, in pregnancy, first trimester (principal); E11.65 Type 2 diabetes mellitus with hyperglycemia; Z3A.01 Less than 8 weeks gestation of pregnancy; O99.341 Other mental disorders complicating pregnancy, first trimester; F43.21 Adjustment disorder with depressed mood; O99.511 Diseases of the respiratory system complicating pregnancy, first trimester; J45.20 Mild intermittent asthma, uncomplicated; Z87.410 Personal history of cervical dysplasia; Z98.82 Breast implant status; Z88.5 Allergy status to narcotic agent; Z91.012 Allergy to eggs; Z91.018 Allergy to other foods; Z79.4 Long term (current) use of insulin
CPT/HCPCS: 80053; 82948; 83036; 84439; 84443; 85025; 86592; 86703; 86803; 87340; J1815

== ENCOUNTER 2016-11-13 00:16 | Emergency (ER) | payer MEDICAID, OTHER ==
[~2016-11-13 00:16] MED LIST changes: +METR-1 PO
[2016-11-13] MEDS ORDERED: SODIUM CHLOR 0.9% 1000 ML INJ 1,000 ML IV SCH (01:56)
[2016-11-13] MEDS ORDERED: METOCLOPRAMIDE HCL 10 MG/2 ML VIAL IV PUSH ONE (02:00)
[2016-11-13] MEDS ORDERED: ONDANSETRON HCL 4 MG/2 ML VIAL IV ONE (02:00)
--- NOTE | 2016-11-13 02:07 | PD ---
HPI Chief Complaint Nausea vomiting diarrhea Date Seen: Nov 13, 2016 Travel History International Travel<30 Days: No Contact w/Intl Traveler<30Days: No Known Affected Area: No History of Present Illness HPI Patient is 26-year-old white female at 17 weeks goes to [facility] who presents with one-day history of nausea vomiting and liquid diarrhea. Some late onset of abdominal pain this afternoon. She is a type I diabetic insulin- dependent 3 injections a day. She is well controlled her blood sugar tonight 116. She denies vaginal bleeding or leakage of fluid. heart tones were heard at 130 Para: 0 : 1 History Past Medical History Narrative Medical Insulin-dependent diabetes for the last 6 years making her class B diabetic Social History Alcohol Use: No Tobacco Use: No Substance Abuse: No Allergies-Medications (Allergen,Severity, Reaction): Coded Allergies: PEANUTS (Unverified Allergy, Severe, 08/04/16) FEELS BAD Codeine (Verified Allergy, Intermediate, Rash, 08/04/16) Egg Allergy (Unverified Allergy, Intermediate, 08/04/16) FEELS BAD Hydrocodone (Verified Allergy, Intermediate, Itching, 08/04/16) Home Meds Active Scripts Metronidazole (Flagyl)500 Mg Ngd153 Mg PO Q12HR 4 Days Ref 0 Prov:Lisa Aguillon MD 09/03/16 Blood Glucose Monitoring W/Device 1 Kit Kit #1 KIT .ROUTE DIRECTED Ref 0 Please dispense one glucometer with testing strips and lancets. Prov:Olegario Bourne MD 08/05/16 Insulin Detemir Inj (Levemir Inj)1,000 unit/ 10 ML Vial10 Units SQ HS #1 VIAL Ref 0 Do not mix with any other Insulin. Prov:Olegario Bourne MD 08/05/16 Review of Systems General / Constitutional: No: Fever, Weight Gain, Chills, Other Eyes: No: Diploplia, Blurred Vision, Visual changes, Pain, Photophobia HENT: No: Headaches, Vertigo, Lightheadedness Cardiovascular: No: Irregular Rhythm, Chest Pain or Discomfort, Palpitations, Tachycardia, Syncope, Varicosities, Edema, Cyanosis Respiratory: No: Cough, Short of Breath, Other Gastrointestinal: Nausea, Vomiting, Diarrhea, Abdominal Pain Genitourinary: No: Decreased Urinary Output, Oliguria Musculoskeletal: No: Limited ROM, Weakness, Cramping, Edema, Pain Skin: No Rash, No Itching, No Dryness, No Lumps, No Change in Pigmentation, No Change in Nails, No Alopecia, No Lesions Neurologic: No: Weakness, Dizziness, Syncope, Focal Abnormalities, Coordination Problem, Headache, Slurred Speech, Seizures Psychiatric: No: Depression, Suicidal Ideations, Homicidal Ideation Endocrine: No: Heat Intolerance, Cold Intolerance, Polydipsia, Polyuria, Other Physical Exam Narrative GENERAL: Well-nourished, well-developed patient. SKIN: Warm and dry. HEAD: Normocephalic and atraumatic. EYES: No scleral icterus. No injection or drainage. ENT: No nasal drainage noted. Mucous membranes pink. Airway patent. NECK: Supple, trachea midline. No JVD. CARDIOVASCULAR: Regular rate and rhythm without murmurs, gallops, or rubs. RESPIRATORY: Breath sounds equal bilaterally. No accessory muscle use. BREASTS: Bilateral exam showed no masses , no retractions, no nipple discharge. ABDOMEN/GI: Abdomen soft, non-tender, bowel sounds present, no rebound, no guarding Gravid to [-17] weeks size GENITOURINARY: External Genitalia: intact and normal in appearance BUS glands: [-] Cervix: [Posterior-] Dilatation: [-Closed] Effacement: [-] Thick Station: [-3] Membranes: [intact ] Uterine Contractions: [-] FHT's: 133 EXTREMITIES: No cyanosis or edema. BACK: Nontender without obvious deformity. No CVA tenderness. NEUROLOGICAL: Awake and alert. Motor and sensory grossly within normal limits. Five out of 5 muscle strength in all muscle groups. Normal speech. Data Data Orders Vital Signs (Adult) .ON ADMISSION (11/13/16 01:56) ^ Labor Status (11/13/16 01:56) Sodium Chlor 0.9% 1000 Ml Inj (Ns 1000 M (11/13/16 01:56) Ondansetron Inj (Zofran Inj) (11/13/16 02:00) Metoclopramide Inj (Reglan Inj) (11/13/16 02:00) Labs Fingerstick blood sugar 116 MDM Interpretation(s) This patient is a 26-year-old white female at 17 weeks gestation with type 1 insulin-dependent diabetes who presents planning of nausea vomiting and diarrhea. Abdominal pain. She's had no medications take for nausea vomiting at home., heart tones 130s cx is closed and posterior Plan Plan IV of normal saline with the Zofran and Reglan IV, home with a prescription for Phenergan by mouth and suppository if needed, she can use Imodium AD [id number] for diarrhea and will give a dose of Lomotil tonight. She is to follow-up with her OB provider if not improved in the next 24 hours Diagnosis Diagnosis: Primary Impression: Nausea and vomiting during prior to 22 weeks gestation Additional Impressions: Diabetes mellitus affecting in second trimester Diarrhea Disposition: 01 DISCHARGE HOME Condition: Stable Scripts Promethazine Supp (Phenergan Supp)25 Mg Supp25 Mg RECTAL Q6H PRN (NAUSEA OR VOMITING) #6 SUPP Ref 0 Prov:Garrett Albarado II, MD 11/13/16 Promethazine (Phenergan)25 Mg [id number] Mg PO Q6H PRN (NAUSEA OR VOMITING) #30 TAB Ref 0 Prov:Garrett Albarado II, MD 11/13/16 Garrett Albarado II, MD Nov 13, 2016 02:07
[2016-11-13] MEDS ORDERED: PROM25TA10 PO (02:08)
[2016-11-13] MEDS ORDERED: PROM1SUP7 RECTAL (02:08)
[2016-11-13] MEDS ORDERED: DIPHENOXYLATE/ATROPINE 2.5 MG/0.025 MG TAB PO ONE (02:15)
== END 2016-11-13 02:50 | disposition home or self-care (01) ==
LOC: HOBED 00:16
DX: O21.0 Mild hyperemesis gravidarum (principal); O24.012 Pre-existing type 1 diabetes mellitus, in pregnancy, second trimester; E10.9 Type 1 diabetes mellitus without complications; Z3A.17 17 weeks gestation of pregnancy; Z79.4 Long term (current) use of insulin; R19.7 Diarrhea, unspecified
CPT/HCPCS: 96361; 96374; 96375; 99284; J2405; J2765; J7030

== ENCOUNTER 2017-03-19 10:35 | Emergency (ER) | payer MEDICAID ==
[~2017-03-19] VITALS: Ht 162.6 cm; Wt 99.8 kg
[~2017-03-19 10:35] MED LIST changes: +PROM1SUP7 RECTAL; +PROM25TA10 PO
[2017-03-19 11:57] VITALS: BP 121/67; PULSE 92
[2017-03-19] MEDS ORDERED: SODIUM CHLOR 0.9% 1000 ML INJ 1,000 ML IV SCH (11:58)
--- NOTE | 2017-03-19 11:58 | PD ---
HPI Chief Complaint Decreased movement Travel History International Travel<30 Days: No Contact w/Intl Traveler<30Days: No Known Affected Area: No History of Present Illness HPI 26-year-old , IUP at 36 weeks care, complicated by class B diabetes, asthma The patient presents reporting diarrhea and vomiting that started at 11 PM last night and lasted for 1 hour. She was unable to sleep and woke up at 4 AM with an episode of diarrhea. She reports that she feels better and has not had diarrhea since. She tolerated breakfast this morning with sausage and serial. She denies any ill contacts. She denies any fever, chills, or other concerns. She denies any recent travel. She reports that she had chicken for dinner last night. She denies any leaking of fluid, vaginal bleeding, or painful contractions. She reports decreased movement this morning, noting that she hadn't felt movement since waking up. However she now reports that she is feeling normal movement and feeling well overall. Weeks Gestation: 36 Para: 0 : 1 History Past Medical History Narrative Medical Asthma, class B diabetes Obstetric History Obstetric History Past Surgical History Narrative Surgical Breast surgery 2 from breast augmentation Family History Narrative Family History Diabetes, hypertension, CVA Social History Alcohol Use: No Tobacco Use: No Substance Abuse: No Allergies-Medications (Allergen,Severity, Reaction): Coded Allergies: peanut (Unverified Allergy, Severe, 11/13/16) FEELS BAD codeine (Unverified Allergy, Intermediate, Rash, 11/13/16) egg (Unverified Allergy, Intermediate, 11/13/16) FEELS BAD hydrocodone (Unverified Allergy, Intermediate, Itching, 11/13/16) Home Meds Active Scripts Blood Glucose Monitoring W/Device (Blood Glucose Monitoring W/Device) 1 Kit Kit , 1 KIT .ROUTE DIRECTED for Blood Sugar Management, #1 KIT 0 Refills Please dispense one glucometer with testing strips and lancets. Prov:Olegario Bourne MD 08/05/16 Insulin Detemir Inj (Levemir Inj) 1,000 unit/ 10 ML Vial, 10 UNITS SQ HS for Blood Sugar Management, #1 VIAL 0 Refills Do not mix with any other Insulin. Prov:Olegario Bourne MD 08/05/16 Discontinued Scripts Promethazine Supp (Phenergan Supp) 25 Mg Supp, 25 MG RECTAL Q6H Y for NAUSEA OR VOMITING, #6 SUPP 0 Refills Prov:Garrett Albarado II, MD 11/13/16 Promethazine (Phenergan) 25 Mg Tablet, 25 MG PO Q6H Y for NAUSEA OR VOMITING, # 30 TAB 0 Refills Prov:Garrett Albarado II, MD 11/13/16 Metronidazole (Flagyl) 500 Mg Tab, 500 MG PO Q12HR for Infection for 4 Days, TAB 0 Refills Prov:Lisa Aguillon MD 09/03/16 Review of Systems Except as stated in HPI: all other systems reviewed are Neg Gastrointestinal: Nausea, Vomiting, Diarrhea Physical Exam Narrative GENERAL: Well-nourished, well-developed patient. SKIN: Warm and dry. HEAD: Normocephalic and atraumatic. EYES: No scleral icterus. No injection or drainage. ENT: No nasal drainage noted. Mucous membranes pink. Airway patent. NECK: Supple, trachea midline. No JVD. CARDIOVASCULAR: Regular rate and rhythm without murmurs, gallops, or rubs. RESPIRATORY: Breath sounds equal bilaterally. No accessory muscle use. BREASTS: Deferred ABDOMEN/GI: Abdomen soft, non-tender, bowel sounds present, no rebound, no guarding Gravid GENITOURINARY: Deferred FHT's: Category: [-] Baseline: [-] Reactive: [-] Variability: [-] Decels: [-] EXTREMITIES: No cyanosis or edema. BACK: Nontender without obvious deformity. No CVA tenderness. NEUROLOGICAL: Awake and alert. Motor and sensory grossly within normal limits. Five out of 5 muscle strength in all muscle groups. Normal speech. Psychiatric: Grossly normal memory and affect Musculoskeletal: Grossly normal range of motion, gait, muscle strength MDM Plan Assessment/plan: 1. IUP at 36 weeks 2. Decreased movement: Patient now reports normal movement, but with her history of diabetes a biophysical profile was obtained that was 8 out of 8 with a reactive NST for total score of 10 out of 10. There is reassuring testing and the patient now feels normal movement, kick counts daily. 3. Nausea/vomiting/diarrhea: Patient reports symptoms have resolved and she was able to tolerate breakfast. Symptoms are fairly short to be gastroenteritis but could be a mild gastroenteritis versus a foodborne illness. However, due to her history of diabetes, CBC and CMP were obtained and the patient received 1 L of normal saline. 4. well-being: Reassuring testing with reactive NST and category 1 heart rate tracing, BPP was 8 out of 8 with a reactive NST for total score of 10 out of 10. heart rate tracing is reassuring and appropriate for gestational age with a category 1 tracing and a reactive NST. 5. Asthma: No issues 6. Slightly elevated AST: AST was 45 within normal range 15-37. This is discussed with Dr. Marquez and the patient, consider repeat labs. 7. Anemia: Hemoglobin 9.8, patient aware and has been informed of this the past , continue iron 7. Follow up with primary OB in 2-3 days or sooner if needed Diagnosis Diagnosis: Primary Impression: 36 weeks gestation of Additional Impression: Decreased movement affecting management of in third trimester Disposition: 01 DISCHARGE HOME Condition: Sybil Cordova MD Mar 19, 2017 11:58
[2017-03-19 12:00] VITALS: RESP 20; TEMP 98.3
--- NOTE | 2017-03-19 12:01 | PD ---
History of Present Illness History of Present Illness NST report Indications: IUP at 36 weeks, class B diabetes, asthma, nausea vomiting diarrhea , decreased movement heart tone baseline in the 130s with moderate long-term variability, good accelerations, no decelerations noted and this a reactive NST and a category 1 heart rate tracing Final diagnosis: IUP at 36 weeks, class B diabetes, asthma, nausea vomiting diarrhea resolved, now reporting normal movement, reassuring testing with reactive NST and BPP 8 out of 8 for a total score of 10 out of 10. heart rate tracing is reactive and a category 1 tracing .PFollow-up: Follow-up as clinically indicated Sybil German MD Mar 19, 2017 12:01
[2017-03-19 12:34] LABS: HEMATOCRIT 29.8 % (35.0-46.0); HEMOGLOBIN 9.8 GM/DL (11.6-15.3); MEAN CELL VOLUME 76.1 FL (80.0-100.0); MEAN CORPUSCULAR HGB CONC 32.9 % (32.0-36.0); MEAN PLATELET VOLUME 8.2 FL (7.0-11.0); PLATELET COUNT 259 TH/MM3 (150-450); RED BLOOD COUNT 3.91 MIL/MM3 (4.00-5.30); RED CELL DISTRIBUTION WIDTH 15.2 % (11.6-17.2); WHITE BLOOD COUNT 9.4 TH/MM3 (4.0-11.0)
[2017-03-19 12:39] LABS: BACTERIA, URINE RARE /hpf; BILIRUBIN, URINE NEG (NEG); BLOOD, URINE NEG (NEG); CALCIUM OXALATE CRYSTALS,URINE OCC /hpf; GLUCOSE,URINE NEG (NEG); KETONE, URINE NEG (NEG); MUCUS URINE FEW /lpf (OCC); NITRITE,URINE NEG (NEG); PH, URINE 6.5 (5.0-8.5); SQUAMOUS EPITHELIAL CELL URINE 5 /hpf (0-5); URINE COLOR YELLOW (YELLW/STRAW); URINE LEUKOCYTE ESTERASE SMALL (NEG)
[2017-03-19 12:52] LABS: ALBUMIN 2.6 GM/DL (3.4-5.0); ALT (GPT) 20 U/L (10-53); AST (GOT) 45 U/L (15-37); BICARBONATE 22.8 MEQ/L (21.0-32.0); CALCIUM 8.9 MG/DL (8.5-10.1); CHLORIDE 108 MEQ/L (98-107); CREATININE 0.52 MG/DL (0.50-1.00); GLOMERULAR FILTRATION RATE 175 ML/MIN (>89); GLUCOSE,RANDOM 109 MG/DL (74-106); SODIUM (NA) 138 MEQ/L (136-145)
[2017-03-19 12:53] LABS: ALKALINE PHOSPHATASE 170 U/L (45-117); BLOOD UREA NITROGEN 3 MG/DL (7-18); TOTAL BILIRUBIN ADULT 0.2 MG/DL (0.2-1.0); TOTAL PROTEIN 7.1 GM/DL (6.4-8.2)
== END 2017-03-19 15:15 | disposition home or self-care (01) ==
LOC: HOBED 10:35
DX: O36.8130 Decreased fetal movements, third trimester, not applicable or unspecified (principal); Z3A.36 36 weeks gestation of pregnancy
CPT/HCPCS: 59025; 76816; 76819; 80053; 81001; 85027; 99284; J7030

== ENCOUNTER 2017-04-03 20:52 | Inpatient (IN) | payer MEDICAID ==
[~2017-04-03] VITALS: Ht 162.6 cm; Wt 99.8 kg
[~2017-04-03 20:52] MED LIST changes: -METR-1 PO; -PROM1SUP7 RECTAL; -PROM25TA10 PO
[2017-04-03] MEDS ORDERED: LACTATED RINGER'S 1000 ML INJ 1,000 ML IV PRN (21:14)
[2017-04-03] MEDS ORDERED: SODIUM CHLOR 0.9% 1000 ML INJ 1,000 ML OTHER PRN (21:14)
[2017-04-03] MEDS ORDERED: CITRIC ACID-SODIUM CITRATE LIQ 30 ML UDC PO SCH (21:15)
[2017-04-03] MEDS ORDERED: LIDOCAINE HCL 1% 50 ML VIAL INFIL PRN (21:15)
[2017-04-03] MEDS ORDERED: SODIUM CHLORID 0.9% 500 ML INJ 500 ML IV PRN (21:15)
[2017-04-03] MEDS ORDERED: LIDOCAINE HCL 1% 50 ML VIAL I-DERMAL PRN (21:15)
[2017-04-03] MEDS ORDERED: OXYTOCIN 30 UNITS-500ML PREMIX 500 ML IV ONE (21:15)
[2017-04-03] MEDS ORDERED: MISOPROSTOL 25 MCG SUPP VAGINAL ONE (21:15)
[2017-04-03] MEDS ORDERED: ONDANSETRON HCL 4 MG/2 ML VIAL IV PUSH PRN (21:15)
[2017-04-03] MEDS: SODIUM CHLORIDE 0.9% FLUSH 10 ML FLUSH IV FLUSH SCH (21:15)
[2017-04-03] MEDS ORDERED: MINERAL OIL 10 ML VIAL TOPICAL PRN (21:15)
[2017-04-03] MEDS ORDERED: SODIUM CHLORIDE 0.9% FLUSH 10 ML FLUSH IV FLUSH PRN (21:15)
[2017-04-03] MEDS ORDERED: SODIUM CHLOR 0.9% 1000 ML INJ 1,000 ML IV PRN (21:34)
--- NOTE | 2017-04-03 21:37 | HHI.HP ---
HPI Chief Complaint admit for term induction, poorly controlled Type 2 diabetes, on insulin regular & NPH Date Seen: Apr 03, 2017 Time Seen: 21:20 Travel History International Travel<30 Days: No Contact w/Intl Traveler<30Days: No Known Affected Area: No History of Present Illness HPI 26 yo G1 with EDC 04/17/17 seen in office today for routine care, has been followed closely since 9 weeks due to Type 2 Diabetes. Had moderate control until today's visit, readings over past week consistently >200 postprandial. Pt taking Insulin Regular 12 units with breakfast and 34 units with dinner, Insulin NPH 26 units with breakfast and 26 units at bedtime. Also has history of HSV, no outbreaks or symptoms/prodrome during , has been on prophylactic valtrex since 36 wks. No lesions on exam today, no symptoms. Has history of recurrent UTI, has been on ly prophylaxis with Macrobid 100mg daily. Also tested positive for GBS in urine. At office visit today pt c/o low back pain, pressure, denies LOF or VB, endorses good movement. Reactive NST in office. 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 LSIL PAP Obstetric History Obstetric History G1 = current, female, vertex, EFW 60%tile Past Surgical History Narrative Surgical breast augmentation Family History Family History: Negative Social History Alcohol Use: No Tobacco Use: No Substance Abuse: No Allergies-Medications (Allergen,Severity, Reaction): Coded Allergies: peanut (Unverified Allergy, Severe, 11/13/16) FEELS BAD codeine (Unverified Allergy, Intermediate, Rash, 11/13/16) egg (Unverified Allergy, Intermediate, 11/13/16) FEELS BAD hydrocodone (Unverified Allergy, Intermediate, Itching, 11/13/16) Home Meds Active Scripts Blood Glucose Monitoring W/Device (Blood Glucose Monitoring W/Device) 1 Kit Kit , 1 KIT .ROUTE DIRECTED for Blood Sugar Management, #1 KIT 0 Refills Please dispense one glucometer with testing strips and lancets. Prov:Olegario Bourne MD 08/05/16 Insulin Detemir Inj (Levemir Inj) 1,000 unit/ 10 ML Vial, 10 UNITS SQ HS for Blood Sugar Management, #1 VIAL 0 Refills Do not mix with any other Insulin. Prov:Olegario Bourne MD 08/05/16 Review of Systems General / Constitutional: Weight Gain, No: Fever, Chills, Other Eyes: No: Diploplia, Blurred Vision, Visual changes, Pain, Photophobia HENT: No: Headaches, Vertigo, Lightheadedness Cardiovascular: No: Irregular Rhythm, Chest Pain or Discomfort, Palpitations, Tachycardia, Syncope, Varicosities, Edema, Cyanosis Respiratory: No: Cough, Short of Breath, Other Gastrointestinal: No: Nausea, Vomiting, Diarrhea Genitourinary: Pelvic Pain (pressure), No: Decreased Urinary Output, Oliguria Musculoskeletal: No: Limited ROM, Weakness, Cramping, Edema, Pain Skin: No Rash, No Itching, No Dryness, No Lumps, No Change in Pigmentation, No Change in Nails, No Alopecia, No Lesions Neurologic: No: Weakness, Dizziness, Syncope, Focal Abnormalities, Coordination Problem, Headache, Slurred Speech, Seizures Psychiatric: No: Depression, Suicidal Ideations, Homicidal Ideation Endocrine: No: Heat Intolerance, Cold Intolerance, Polydipsia, Polyuria, Other Physical Exam Narrative GENERAL: Well-nourished, well-developed patient. SKIN: Warm and dry. HEAD: Normocephalic and atraumatic. EYES: No scleral icterus. No injection or drainage. ENT: No nasal drainage noted. Mucous membranes pink. Airway patent. NECK: Supple, trachea midline. No JVD. CARDIOVASCULAR: Regular rate and rhythm without murmurs, gallops, or rubs. RESPIRATORY: Breath sounds equal bilaterally. No accessory muscle use. BREASTS: deferred. ABDOMEN/GI: Abdomen soft, non-tender, bowel sounds present, no rebound, no guarding Gravid to [38] weeks size Fundal Height: [39] GENITOURINARY: External Genitalia: 250/-2 FHT's: R NST in office EXTREMITIES: No cyanosis or edema. BACK: Nontender without obvious deformity. No CVA tenderness. NEUROLOGICAL: Awake and alert. Motor and sensory grossly within normal limits. Five out of 5 muscle strength in all muscle groups. Normal speech. Caprini VTE Risk Assessment Caprini VTE Risk Assessment: No/Low Risk (score <= 1) VTE Pharm Contraindication: High risk for bleeding Caprini Risk Assessment Model Point Value = 1 Point Value = 2 Point Value = 3 Point Value = 5 Age 41-60 Minor surgery BMI > 25 kg/m2 Swollen legs Varicose veins or History of unexplained or recurrent spontaneous Oral contraceptives or hormone replacement Sepsis (< 1 month) Serious lung disease, including pneumonia (< 1 month) Abnormal pulmonary function Acute myocardial infarction Congestive heart failure (< 1 month) History of inflammatory bowel disease Medical patient at bed rest Age 61-74 Arthroscopic surgery Major open surgery (> 45 min) Laparoscopic surgery (> 45 min) Malignancy Confined to bed (> 72 hours) Immobilizing plaster cast Central venous access Age >= 75 History of VTE Family history of VTE Factor V Leiden Prothrombin [id number] Lupus anticoagulant Anticardiolipin antibodies Elevated serum homocysteine Heparin-induced thrombocytopenia Other congenital or acquired thrombophilia Stroke (< 1 month) Elective arthroplasty Hip, pelvis, or leg fracture Acute spinal cord injury (< 1 month) Prophylaxis Regimen Total Risk Factor Score Risk Level Prophylaxis Regimen 0-1 Low Early ambulation 2 Moderate Order ONE of the following: *Sequential Compression Device (SCD) *Heparin 5000 units SQ BID 3-4 Higher Order ONE of the following medications: *Heparin 5000 units SQ TID *Enoxaparin/Lovenox 40 mg SQ daily (WT < 150 kg, CrCl > 30 mL/min) *Enoxaparin/Lovenox 30 mg SQ daily (WT < 150 kg, CrCl > 10-29 mL/min) *Enoxaparin/Lovenox 30 mg SQ BID (WT < 150 kg, CrCl > 30 mL/min) AND/OR *Sequential Compression Device (SCD) 5 or more Highest Order ONE of the following medications: *Heparin 5000 units SQ TID (Preferred with Epidurals) *Enoxaparin/Lovenox 40 mg SQ daily (WT < 150 kg, CrCl > 30 mL/min) *Enoxaparin/Lovenox 30 mg SQ daily (WT < 150 kg, CrCl > 10-29 mL/min) *Enoxaparin/Lovenox 30 mg SQ BID (WT < 150 kg, CrCl > 30 mL/min) AND *Sequential Compression Device (SCD) Data Data Vital Signs Reviewed: Yes Orders Orders Admit To Inpatient (04/03/17 ) Activity Oob Ad Theresa (04/03/17 21:14) ^ Labor Induction (04/03/17 21:14) ^ Vaginal Insert (04/03/17 21:14) ^ Vaginal Lavage (04/03/17 21:14) Heart (04/03/17 21:14) Sodium Chloride 0.9% Flush (Ns Flush) (04/03/17 21:15) Sodium Chloride 0.9% Flush (Ns Flush) (04/03/17 21:15) Sodium Chlor 0.9% 1000 Ml Inj (Ns 1000 M (04/03/17 21:14) Misoprostol Supp (Cytotec Supp) (04/03/17 21:15) Misoprostol Supp (Cytotec Supp) (04/04/17 01:15) Code Status (04/03/17 21:14) Vital Signs (Adult) .Per protocol (04/03/17 21:14) Amnioinfusion (04/03/17 21:14) Urinary Catheter Management .ONCE (04/03/17 21:14) Lactated Ringer's 1000 Ml Inj (Lr 1000 M (04/03/17 21:14) Lactated Ringer's 1000 Ml Inj (Lr 1000 M (04/03/17 21:14) Sodium Chlorid 0.9% 500 Ml Inj (Ns 500 M (04/03/17 21:15) Sodium Chlor 0.9% 1000 Ml Inj (Ns 1000 M (04/03/17 21:34) Lidocaine 1% Inj (50 Ml) (Xylocaine 1% I (04/03/17 21:15) Citric Acid-Sodium Citrate Liq (Bicitra (04/03/17 21:15) Ondansetron Inj (Zofran Inj) (04/03/17 21:15) Fentanyl Inj (Fentanyl Inj) (04/03/17 21:15) Fentanyl Inj (Fentanyl Inj) (04/03/17 21:15) Penicillin G Potassium Inj (Pfizerpen-G (04/03/17 21:15) Penicillin G Potassium Inj (Pfizerpen-G (04/04/17 01:15) Complete Blood Count With Diff (04/03/17 21:14) Hold Clot (04/03/17 21:14) Abo/Rh Blood Type (04/03/17 21:14) Urinalysis - C+S If Indicated (04/03/17 21:14) Drug Screen, Random Urine (04/03/17 21:14) Resp Oxygen Non Rebreathe Mask (04/03/17 ) ^ Epidural / Intrathecal Infus (04/03/17 21:14) Oxytocin 30 Units-500ml Premix (Pitocin (04/03/17 21:15) Lidocaine 1% Inj (50 Ml) (Xylocaine 1% I (04/03/17 21:15) Light Mineral Oil (Muri-Lube Oil) (04/03/17 21:15) Bedside Glucose KETURAH.CSUGAR (04/03/17 21:14) Insulin Human Reg Supp Scale (Novolin R (04/04/17 08:00) Inpatient Certification (04/03/17 ) Specimen To Be Collected PRN (04/03/17 21:14) Specimen To Be Collected PRN (04/03/17 21:14) Diet Diabetic (04/04/17 Breakfast) Insulin Human Nph Inj (Novolin N Inj) (04/04/17 08:00) Insulin Human Nph Inj (Novolin N Inj) (04/03/17 22:00) Insulin Human Regular Inj (Novolin R Inj (04/04/17 08:00) Insulin Human Regular Inj (Novolin R Inj (04/04/17 17:00) ^ Non Stress Test (04/03/17 21:23) Response To Medication .Post New Med Administration, Reaction (04/03/17 21:23) ^ Discontinue Medication (04/03/17 21:23) Oxytocin Drip:Individualized (04/04/17 06:00) Group B Strep: Positive Assessment/Plan Problem List: (1) Diabetes mellitus affecting in third trimester ICD Codes: O24.913 - Unspecified diabetes mellitus in , third trimester Status: Chronic (2) GBS bacteriuria ICD Codes: R82.71 - Bacteriuria Status: Chronic (3) Term ICD Codes: Z34.80 - Encounter for supervision of other normal , unspecified trimester Status: Acute Assessment and Plan 26 yo G1 with betts IUP at 38wks, EDC 04/17/17, admit for term IOL due to poor glycemic control, type 2 diabetic, insulin dependent 1) IOL: start with cytotec tonight, repeat dose if indicated; pt aware of risks including stress or , consents to induction, aware indicated due to poor glycemic control at term 2) T2DM: dx age 20, pt noncompliant with meds prior to , was moderately controlled until last week when log shows consistent 2h PP values > 200 despite proper insulin use; continue insulin dosing at this time, will allow diabetic diet with SS as indicated; doses: regular 12 QAM & 34 w dinner; NPH 26 QAM and 26 QHS; if change to clears will plan hourly accuchecks and SS as indicated 3) h/o HSV1: no symptoms or outbreaks during ; on PPX, no sign of outbreak on office exam today and asymptomatic 4) GBS bacteruria: PCN ordered 5) h/o chronic UTI: has been on Macrobid ppx daily; UAC&S ordered on admit 6) LSIL PAP, neg HPV; for PP f/u 7) status: female, vertex, EFW 7.5# Discharge Planning routine, 2-3d PP Viri Freeman MD Apr 03, 2017 21:37
[2017-04-03 21:45] VITALS: PULSE 90
[2017-04-03] MEDS ORDERED: ZOLPIDEM TARTRATE 5 MG TAB PO PRN (21:45)
[2017-04-03 21:50] VITALS: PULSE 91
[2017-04-03 21:55] VITALS: PULSE 86
[2017-04-03 21:56] VITALS: BP 115/70; PULSE 95
[2017-04-03 22:00] VITALS: RESP 18; TEMP 98
[2017-04-03] MEDS ORDERED: INSULIN HUMAN NPH 1,000 UNITS/10 ML VIAL SQ SCH (22:00)
[2017-04-03] MEDS ORDERED: PENICILLIN G POTASSIUM INJ 5,000,000 UNITS in SODIUM CHLORIDE 0.9% INJ 100 ML IV ONE (22:00)
[2017-04-03 22:20] LABS: AUTOMATED NEUTROPHIL # 7.1 TH/MM3 (1.8-7.7); BASOPHIL % 0.4 % (0.0-2.0); EOSINOPHIL # 0.2 TH/MM3 (0-0.4); EOSINOPHIL % 1.6 % (0.0-4.0); HEMOGLOBIN 10.2 GM/DL (11.6-15.3); LYMPH % 25.3 % (9.0-44.0); LYMPHOCYTE # 2.7 TH/MM3 (1.0-4.8); MEAN CELL VOLUME 74.7 FL (80.0-100.0); MEAN CORPUSCULAR HEMOGLOBIN 23.8 PG (27.0-34.0); MEAN CORPUSCULAR HGB CONC 31.9 % (32.0-36.0); MEAN PLATELET VOLUME 8.1 FL (7.0-11.0); MONO % 6.2 % (0.0-8.0); MONOCYTE # 0.7 TH/MM3 (0-0.9); NEUT % 66.5 % (16.0-70.0); PLATELET COUNT 271 TH/MM3 (150-450); RED BLOOD COUNT 4.29 MIL/MM3 (4.00-5.30); RED CELL DISTRIBUTION WIDTH 15.6 % (11.6-17.2); WHITE BLOOD COUNT 10.7 TH/MM3 (4.0-11.0)
[2017-04-03 22:30] LABS: BACTERIA, URINE OCC /hpf; BILIRUBIN, URINE NEG (NEG); BLOOD, URINE SMALL (NEG); GLUCOSE,URINE NEG (NEG); KETONE, URINE TRACE mg/dL (NEG); MUCUS URINE FEW /lpf (OCC); NITRITE,URINE NEG (NEG); SQUAMOUS EPITHELIAL CELL URINE 33 /hpf (0-5); URINE COLOR YELLOW (YELLW/STRAW); URINE LEUKOCYTE ESTERASE LARGE (NEG)
[2017-04-03] MEDS: LACTATED RINGER'S 1000 ML INJ 1,000 ML IV SCH ×2 (22:50→23:30)
[2017-04-03 23:15] VITALS: RESP 18
[2017-04-04] VITALS (106 sets, daily range): BP systolic 101–148; BP diastolic 52–92; PULSE 72–119; RESP 0–21; TEMP 97.7–98.8
[2017-04-04] MEDS ORDERED: MISOPROSTOL 25 MCG SUPP VAGINAL PRN (01:15)
[2017-04-04] MEDS ORDERED: INSU100V2 SQ ×2 (02:14→02:19)
[2017-04-04] MEDS ORDERED: INSU100V3 SQ ×3 (02:17→04:19)
[2017-04-04] MEDS ORDERED: SE-NCHW CHEW (02:23)
[2017-04-04] MEDS: PENICILLIN G POTASSIUM INJ 2,500,000 UNITS in SODIUM CHLORIDE 0.9% INJ 100 ML IV SCH ×3 (03:15→14:29)
[2017-04-04] MEDS ORDERED: OXYTOCIN 30 UNITS-500ML PREMIX 500 ML IV SCH (06:00)
[2017-04-04] MEDS: LACTATED RINGER'S 1000 ML INJ 1,000 ML IV SCH ×2 (06:58→14:30)
--- NOTE | 2017-04-04 07:43 | PD.LABORPN ---
Subjective Subjective feeling contractions about every 4 minutes, moderate, no severe discomfort, not yet requesting epidural; denies LOF or VB Objective Vital Signs Vital Signs Date Time Temp Pulse Resp B/P (MAP) Pulse Ox O2 Delivery O2 Flow Rate FiO2 04/04/17 07:32 91 118/68 (85) 04/04/17 07:30 90 04/04/17 06:42 82 18 131/72 (91) 04/04/17 06:40 90 04/04/17 06:35 94 04/04/17 06:30 85 04/04/17 06:15 18 04/04/17 03:25 84 04/04/17 03:20 83 04/04/17 03:19 98.4 78 18 121/66 (84) 04/04/17 03:15 88 04/04/17 03:00 18 04/04/17 02:05 83 04/04/17 02:05 82 124/74 (91) 04/04/17 02:04 18 04/04/17 02:04 0 04/04/17 02:00 95 04/04/17 01:15 18 04/04/17 01:10 87 04/04/17 01:08 87 126/83 (97) 04/04/17 01:05 91 04/04/17 01:00 92 Objective Pelvic Exam: Cervix: [mid] Dilatation: [4] Effacement: [50] Station: [-2] ballotable Presentation: [vtx] Membranes: [intact] Uterine Contractions: [q4-5 min] FHT's: Category: [I] Baseline: [140s] Reactive: [y] Variability: [y] Decels: [n] Weeks Gestation: 38 Assessment/Plan Problem List: (1) Diabetes mellitus affecting in third trimester ICD Codes: O24.913 - Unspecified diabetes mellitus in , third trimester Status: Chronic (2) GBS bacteriuria ICD Codes: R82.71 - Bacteriuria Status: Chronic (3) Term ICD Codes: Z34.80 - Encounter for supervision of other normal , unspecified trimester Status: Acute Assessment and Plan 26 yo G1 with betts IUP at 38w1d, EDC 04/17/17, admit 04/03/17 overnight for term IOL due to poor glycemic control, type 2 diabetic, insulin dependent 1) IOL: ordered cytotec for admit but pharmacy out, started pitocin overnight, continue, too high to AROM this check, will plan recheck around noon; pt aware of risks of IOL including stress or , consented to induction, aware indicated due to poor glycemic control at term 2) T2DM: dx age 20, pt noncompliant with meds prior to , was moderately controlled until last week when log shows consistent 2h PP values > 200 despite proper insulin use; continue insulin dosing at this time, ok to eat breakfast then will switch to liquid diet with SS coverage; - home insulin doses: regular 12 QAM & 34 w dinner; NPH 26 QAM and 26 QHS; will plan to cut in half & continue to monitor fasting & 2h postprandial values 3) h/o HSV1: no symptoms or outbreaks during ; on PPX, no sign of outbreak on office exam 04/03/17 and asymptomatic 4) GBS bacteruria: PCN started 5) h/o chronic UTI: has been on Macrobid ppx daily; UAC&S ordered on admit 6) LSIL PAP, neg HPV; for PP f/u 7) status: female, vertex, EFW 7.5#, Cat 1 tracing currently Viri Freeman MD Apr 04, 2017 07:43
[2017-04-04] MEDS ORDERED: INSULIN HUMAN REGULAR 1,000 UNITS/10 ML VIAL SQ SCH ×2 (08:00→17:00)
[2017-04-04] MEDS: INSULIN NovoLIN REGULAR SUPPLEMENTAL SCALE SQ SCH ×3 (08:00→17:00)
[2017-04-04] MEDS ORDERED: INSULIN HUMAN NPH 1,000 UNITS/10 ML VIAL SQ SCH (08:00)
[2017-04-04] MEDS: SODIUM CHLORIDE 0.9% FLUSH 10 ML FLUSH IV FLUSH SCH ×3 (09:00→21:00)
[2017-04-04] MEDS ORDERED: ePHEDrine/NS 25 MG/5 ML SYRINGE IV ONE (12:00)
[2017-04-04] MEDS ORDERED: OXYTOCIN 10 UNIT/ML AMP IV ONE (12:00)
[2017-04-04] MEDS ORDERED: ONDANSETRON HCL 4 MG/2 ML VIAL IV ONE (12:00)
[2017-04-04] MEDS ORDERED: PHENYLEPH/NS 1000 MCG/10 ML SYR IV ONE (12:00)
[2017-04-04] MEDS ORDERED: LACTATED RINGER'S 1000 ML INJ 1,000 ML IV ONE ×2 (12:00→19:39)
--- NOTE | 2017-04-04 12:27 | PD.LABORPN ---
Subjective Subjective doing well, some increasing pain with ctx, overall doing well. Objective Vital Signs Vital Signs Date Time Temp Pulse Resp B/P (MAP) Pulse Ox O2 Delivery O2 Flow Rate FiO2 04/04/17 12:02 98.8 20 04/04/17 12:01 91 138/83 (101) 04/04/17 12:00 90 04/04/17 11:31 79 133/71 (91) 04/04/17 11:30 77 04/04/17 11:10 77 04/04/17 11:05 77 04/04/17 11:01 77 131/74 (93) 04/04/17 11:00 78 04/04/17 10:41 126/75 (92) 04/04/17 10:41 88 04/04/17 10:40 79 04/04/17 10:35 79 04/04/17 10:30 80 04/04/17 09:00 20 04/04/17 09:00 98.2 04/04/17 08:55 78 04/04/17 08:52 80 135/80 (98) 04/04/17 08:50 96 04/04/17 08:45 84 04/04/17 08:30 20 04/04/17 08:30 98.2 04/04/17 08:25 79 04/04/17 08:20 87 04/04/17 08:17 79 134/65 (88) 04/04/17 07:40 88 04/04/17 07:35 74 04/04/17 07:32 91 118/68 (85) 04/04/17 07:30 90 04/04/17 06:42 82 18 131/72 (91) 04/04/17 06:40 90 04/04/17 06:35 94 04/04/17 06:30 85 04/04/17 06:15 18 Objective Pelvic Exam: Cervix: Dilatation: [4] Effacement: [70] Station: [-2] Presentation: [ceph, palpable sutures] Membranes: [AROM this check, ] Uterine Contractions: [ q 3-4 min] FHT's: Category: [1] Baseline: [140-150s] Reactive: [yes] Variability: [moderate] Decels: [none] Weeks Gestation: 38 Artificial ROM date: Apr 04, 2017 Artifical ROM time: 12:21 Assessment/Plan Problem List: (1) Diabetes mellitus affecting in third trimester ICD Codes: O24.913 - Unspecified diabetes mellitus in , third trimester Status: Chronic (2) GBS bacteriuria ICD Codes: R82.71 - Bacteriuria Status: Chronic (3) Term ICD Codes: Z34.80 - Encounter for supervision of other normal , unspecified trimester Status: Acute Assessment and Plan 26 yo G1 at 38w1d, EDC 04/17/17 for IOL secondary to poorly controlled DM2. Admit 04/03/17 1) IUP: Cat 1 tracing - Clinical EFW 7.5lbs, most recent US EFW (1130) = 2277g (67%), AC 46%. 2) IOL: Secondary to #3, continue pit, currently 12, AROM, clear, this check ( 1221), titrate per protocol. - Will desire epidural 3) T2DM: dx age 20, pt noncompliant with meds prior to , was moderately controlled until last week when log shows consistent 2h PP values > 200 despite proper insulin use - Continued on home insulin here. On CLD now, BS q2hr, goal 70-110, in active likely q1hr may need insulin drip. Has SS for coverage at this time. - Home Insulin NPH , Novolin R per outpt records. 4) h/o HSV1: no symptoms or outbreaks during ; on PPX, no sign of outbreak on office exam 04/03/17 and asymptomatic 5) GBS bacteruria: Continue PCN for ppx 6) h/o chronic UTI: has been on Macrobid ppx daily; UAC&S ordered on admit 7) LSIL PAP, neg HPV; for PP f/u Ricci Celis MD Apr 04, 2017 12:27
[2017-04-04] MEDS ORDERED: ePHEDrine/NS 25 MG/5 ML SYRINGE ONE (13:30)
[2017-04-04] MEDS ORDERED: fentaNYL 2MCG-BUPIV 0.125% INJ 100 ML ONE (13:30)
[2017-04-04] MEDS ORDERED: diphenhydrAMINE HCL 50 MG/ML VIAL ONE (13:44)
[2017-04-04] MEDS ORDERED: diphenhydrAMINE HCL 50 MG/ML VIAL IV ONE (13:47)
[2017-04-04] MEDS ORDERED: fentaNYL 2MCG-BUPIV 0.125% 100 ML EPIDURAL SCH (15:15)
[2017-04-04] MEDS ORDERED: DO NOT ADMINISTER ANTICOAGULANTS PRN (15:15)
[2017-04-04] MEDS ORDERED: ePHEDrine/NS 25 MG/5 ML SYRINGE IV PUSH PRN (15:15)
[2017-04-04] MEDS ORDERED: NO SYSTEM NARCOTICS PRN (15:15)
--- NOTE | 2017-04-04 16:57 | PD.LABORPN ---
Subjective Subjective feeling comfortable s/p epidural, sleepy Objective Vital Signs Vital Signs Date Time Temp Pulse Resp B/P (MAP) Pulse Ox O2 Delivery O2 Flow Rate FiO2 04/04/17 16:45 79 120/71 (87) 04/04/17 16:40 80 04/04/17 16:35 79 04/04/17 16:30 80 114/57 (76) 04/04/17 16:30 77 04/04/17 16:29 98.8 20 04/04/17 16:25 78 04/04/17 16:20 79 04/04/17 16:15 78 115/58 (77) 04/04/17 16:15 78 04/04/17 16:10 76 04/04/17 16:05 78 04/04/17 16:00 78 04/04/17 16:00 77 113/57 (75) 04/04/17 15:55 76 04/04/17 15:50 76 04/04/17 15:46 74 111/54 (73) 04/04/17 15:45 78 04/04/17 15:39 20 04/04/17 15:35 85 04/04/17 15:30 80 125/71 (89) 04/04/17 15:30 79 04/04/17 15:25 89 04/04/17 15:20 84 04/04/17 15:15 93 04/04/17 15:15 85 114/67 (83) 04/04/17 14:56 75 101/58 (72) 04/04/17 14:55 82 04/04/17 14:50 78 04/04/17 14:50 84 109/58 (75) 04/04/17 14:49 20 04/04/17 14:45 74 04/04/17 14:25 82 04/04/17 14:25 84 04/04/17 14:21 76 119/63 (81) 04/04/17 14:20 78 04/04/17 14:15 77 04/04/17 14:10 79 04/04/17 14:05 78 04/04/17 14:01 74 148/88 (108) 04/04/17 14:00 76 04/04/17 13:55 77 04/04/17 13:50 73 04/04/17 13:45 72 04/04/17 13:40 72 04/04/17 13:35 76 04/04/17 13:31 74 129/71 (90) 04/04/17 13:30 75 04/04/17 13:10 97 04/04/17 13:05 107 04/04/17 13:01 89 136/67 (90) 04/04/17 13:00 86 04/04/17 12:02 98.8 20 04/04/17 12:01 91 138/83 (101) 04/04/17 12:00 90 04/04/17 11:31 79 133/71 (91) 04/04/17 11:30 77 04/04/17 11:10 77 04/04/17 11:05 77 04/04/17 11:01 77 131/74 (93) 04/04/17 11:00 78 04/04/17 10:41 126/75 (92) 04/04/17 10:41 88 04/04/17 10:40 79 04/04/17 10:35 79 04/04/17 10:30 80 04/04/17 09:00 20 04/04/17 09:00 98.2 Objective Pelvic Exam: Cervix: [mid] Dilatation: [5] Effacement: [50] Station: [-1 to -2] Presentation: [vtx] Membranes: [AROM'd clear] Uterine Contractions: [q3-4 min] FHT's: Category: [I] Baseline: [140s] Reactive: [y] Variability: [y] Decels: [n] Weeks Gestation: 38 Artificial ROM date: Apr 04, 2017 Artifical ROM time: 12:21 Assessment/Plan Problem List: (1) Diabetes mellitus affecting in third trimester ICD Codes: O24.913 - Unspecified diabetes mellitus in , third trimester Status: Chronic (2) GBS bacteriuria ICD Codes: R82.71 - Bacteriuria Status: Chronic (3) Term ICD Codes: Z34.80 - Encounter for supervision of other normal , unspecified trimester Status: Acute Assessment and Plan 26 yo G1 with betts IUP at 38w1d, EDC 04/17/17, admit 04/03/17 overnight for term IOL due to poor glycemic control, type 2 diabetic, insulin dependent 1) IOL: ordered cytotec on admit but pharmacy out, started pitocin overnight, AROM'd at noon, clear; IUPC placed this check due to minimal change; MVU's not adequate; continue to augment at this time; laid foundation at this check for possibility of ; pt aware of risks of IOL including stress or , consented to induction, aware indicated due to poor glycemic control at term 2) T2DM: dx age 20, pt noncompliant with meds prior to , was moderately controlled until last week when log shows consistent 2h PP values > 200 despite proper insulin use; on liquid diet with SS coverage; BS <70 x 2, will allow crackers, apple juice, and peanut butter now & recheck 2hr; asymptomatic - home insulin doses: regular 12 QAM & 34 w dinner; NPH 26 QAM and 26 QHS; will plan to cut in half & continue to monitor fasting & 2h postprandial values 3) 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
[2017-04-04] MEDS ORDERED: DEXTROSE 5%-LACTATED RING INJ 1,000 ML IV SCH (18:15)
--- NOTE | 2017-04-04 19:42 | HHI.PR ---
SYSTEM DISPATCHER Note Note To bedside to evaluate as change in baseline, now 160s, reactive but persistent tachycardia. Robb well with IUPC in place and adequate MVUs for >2 hrs, cervix unchanged 5/50/-1 to -2. D/w pt arrest of labor and tachycardia nonreassuring findings. Will proceed with . Orders placed , nursing & anesthesia staff made aware. Viri Freeman MD Apr 04, 2017 19:42
[2017-04-04] MEDS ORDERED: LIDOCAINE 2%/EPINEPHrine PF 1:200,000 20ML SDV ONE (19:44)
[2017-04-04] MEDS ORDERED: ACETAMINOPHEN 1000 MG/100 ML 100 ML IV ONE (19:57)
[2017-04-04] MEDS ORDERED: LACTATED RINGER'S 1000 ML INJ 1,000 ML IV SCH (20:09)
[2017-04-04] MEDS ORDERED: MORPHINE SULFATE PF 5 MG/10 ML VIAL ONE (20:20)
[2017-04-04] MEDS ORDERED: ceFAZolin 2 GM PREMIX 50 ML IV SCH (20:45)
[2017-04-04] MEDS ORDERED: OXYTOCIN 30 UNITS-500ML PREMIX 500 ML IV ONE (21:00)
[2017-04-04] MEDS ORDERED: ZOLPIDEM TARTRATE 5 MG TAB PO PRN (21:00)
[2017-04-04] MEDS ORDERED: SODIUM CHLORIDE 0.9% FLUSH 10 ML FLUSH IV FLUSH PRN (21:00)
[2017-04-04] MEDS ORDERED: oxyCODONE/ACETAMINOPHEN 5 MG/325 MG TAB PO PRN (21:00)
[2017-04-04] MEDS ORDERED: ONDANSETRON HCL 4 MG/2 ML VIAL IV PUSH PRN (21:00)
[2017-04-04] MEDS ORDERED: ACETAMINOPHEN 1000 MG/100 ML 100 ML IV SCH (21:00)
[2017-04-04] MEDS ORDERED: SIMETHICONE 80 MG CHEWABLE TAB PO PRN (21:00)
[2017-04-04] MEDS ORDERED: DOCUSATE SODIUM 50 MG/SENNA 8.6 MG TAB PO PRN (21:00)
--- NOTE | 2017-04-04 21:00 | PD.OB.DELI ---
Procedure Note Section Procedure Pre Op Diagnosis: (1) Diabetes mellitus affecting in third trimester (2) Term (3) Arrested labor Post Op Diagnosis: (1) Diabetes mellitus affecting in third trimester (2) S/P primary low transverse (3) Arrested active labor, delivered, current hospitalization Performed by Viri Freeman Procedure: Primary Low Transverse Sec Indication for delivery: Other (arrest of labor) Informed consent obtained: For anesthesia, For procedure Confirmed correct: Patient, Procedure, Site, Time-out taken Anesthesia: Epidural Medication prior to procedure: As documented in eMAR Monitoring during procedure: Blood pressure monitoring, dial screw assembler, Pulse oximetry Urinary catheter: Other (already in place as part of labor process) Sterile preparation: Duraprep, In usual fashion, With 2% chlorexidine ( Hibiclens) Position: Supine with wedge to right side, Supine with safety belt applied Operative Features Skin Incision: Pfannenstiel Uterine Incision: Low transverse w/knife / blunt ext Membranes Ruptured: Previously, Amount of liquid (copious), Appearance of fluid (clear) Presentation: Vertex Delivery date: Apr 04, 2017 Delivery time: 20:18 Delivery of infant: Uneventful, Umbilical cord (delayed clamping 45 seconds) : Female, Single One Minute : 9 Five Minute : 9 Weight: 3360g (7#7oz) Status of : Viable, Cord blood, Nursery present Placenta delivered: Intact Medications: Antibiotics (ancef 2g preop standard; had received multiple doses of penicillin due to GBS positive) Estimated blood loss: 500 mL Procedure tolerated: Well Maternal Condition: Stable Condition: Stable Procedure in detail see dictated op note Viri Freeman MD Apr 04, 2017 21:00
[2017-04-04] MEDS ORDERED: CITRIC ACID-SODIUM CITRATE LIQ 30 ML UDC PO SCH (21:15)
[2017-04-04] MEDS ORDERED: KETOROLAC TROMETHAMINE 30 MG/ML (IVP) VIAL ONE (21:33)
[2017-04-04] MEDS: KETOROLAC TROMETHAMINE 60 MG/2 ML (IM) VIAL IM SCH ×2 (21:35→21:39)
[2017-04-04] MEDS ORDERED: EPIDURAL-NALOXONE HCL 0.4 MG/ML AMP IV PUSH PRN (22:45)
[2017-04-04] MEDS ORDERED: EPIDURAL-NO SYSTEMIC NARCOTICS PRN (22:45)
[2017-04-04] MEDS ORDERED: EPIDURAL-DO NOT ADMINISTER ANTICOAGULANTS PRN (22:45)
[2017-04-04] MEDS ORDERED: EPIDURAL-DIPHENHYDRAMINE HCL 50 MG CAP PO PRN (22:45)
[2017-04-04] MEDS: diphenhydrAMINE HCL 50 MG/ML VIAL IV PUSH PRN (23:49)
[2017-04-04] MEDS: EPIDURAL-DIPHENHYDRAMINE HCL 50 MG/ML VIAL IV PUSH PRN (23:50)
[2017-04-05] VITALS: BP 113/69; PULSE 80; RESP 16; TEMP 97.6; O2SAT 100
[2017-04-05] MEDS: ACETAMINOPHEN 1000 MG/100 ML 100 ML IV SCH ×3 (03:17→15:40)
[2017-04-05] MEDS: KETOROLAC TROMETHAMINE 60 MG/2 ML (IM) VIAL IM SCH ×3 (03:18→15:31)
[2017-04-05 05:14] VITALS: BP 108/59; PULSE 71; RESP 20; TEMP 98.3
[2017-04-05] MEDS: EPIDURAL-DIPHENHYDRAMINE HCL 50 MG/ML VIAL IV PUSH PRN ×2 (05:18→05:31)
[2017-04-05 05:50] LABS: AUTOMATED NEUTROPHIL # 9.1 TH/MM3 (1.8-7.7); BASOPHIL % 0.2 % (0.0-2.0); EOSINOPHIL # 0.1 TH/MM3 (0-0.4); EOSINOPHIL % 0.6 % (0.0-4.0); HEMATOCRIT 27.2 % (35.0-46.0); HEMOGLOBIN 8.8 GM/DL (11.6-15.3); LYMPH % 20.1 % (9.0-44.0); LYMPHOCYTE # 2.5 TH/MM3 (1.0-4.8); MEAN CELL VOLUME 75.5 FL (80.0-100.0); MEAN CORPUSCULAR HEMOGLOBIN 24.3 PG (27.0-34.0); MEAN CORPUSCULAR HGB CONC 32.2 % (32.0-36.0); MONO % 7.2 % (0.0-8.0); MONOCYTE # 0.9 TH/MM3 (0-0.9); NEUT % 71.9 % (16.0-70.0); PLATELET COUNT 213 TH/MM3 (150-450); RED CELL DISTRIBUTION WIDTH 15.3 % (11.6-17.2); WHITE BLOOD COUNT 12.6 TH/MM3 (4.0-11.0)
--- NOTE | 2017-04-05 06:47 | MP ---
cc: RACHANA REED M.D. DATE OF 1990 DATE OF SURGERY April 04, 2017 PREOPERATIVE DIAGNOSES 1. Insulin dependent type 2 diabetes. 2. Term at 38 weeks 3. Poor glycemic control. 4. GBS positive. 5. History of chronic bacteruria in . 6. Low-grade Pap smear. 7. Arrest of active phase of labor. POSTOPERATIVE DIAGNOSES 1. Insulin dependent type 2 diabetes. 2. Term at 38 weeks 3. Poor glycemic control. 4. GBS positive. 5. History of chronic bacteruria in . 6. Low-grade Pap smear. 7. Arrest of active phase of labor. 8. Postop day #0. INDICATIONS Zehra Berg is a 26-year-old 1, now para 1-0-0-1, who has been seen and evaluated in the office weekly since the beginning of her at 9 weeks for known history of type 2 diabetes which the patient was not compliant with managing prior to her . She was started on insulin and was managed fairly well until 38 week visit at which time her 2-hour postprandial values were consistently greater than 200. It was decided that time that, due to term status and poor glycemic control, induction was indicated. The patient was brought in on the evening of April 02. She was 2-cm, 50% effaced, high station. The hospital was out of vaginal insert Cytotec so Pitocin was started. The patient progressed to 4-5 cm, 50% effaced, -2 station was AROM-ed, did not progress over the course of the day so IUPC was placed. Adequate MVUs were noted for more than three hours and the patient still did not progress. As such arrest of labor was diagnosed and was performed. PROCEDURE PERFORMED Primary low transverse delivery. SURGEON Rachana Reed MD [employer] SURGE[employer] Stephan Kong MD TYPE OF ANESTHESIA Epidural. ESTIMATED BLOOD LOSS 500 mL. FLUIDS Urine output and IV fluids are recorded on separate anesthesia sheet. Lopez was already in place as part of the labor process. PROPHYLAXIS Ancef 2 grams IV was given preoperatively and SCDs were on and functioning throughout the entire case. COMPLICATIONS None. COUNTS Sponge, lap, instrument and needle are correct x2 at the conclusion of the procedure. SPECIMEN None. INTRAOPERATIVE FINDINGS A vigorous viable female who was immediately crying upon delivery. Apgars of 9 and 9. weight 3360 grams correlating to 7 pounds, 7 ounces. was in vertex position. Amniotic fluid was clear and copious. Placenta was intact. Uterus, bilateral ovaries and fallopian tubes were within normal limits. PROCEDURE IN DETAIL After reviewing the informed consent the patient was taken to the operating suite where a time-out was performed to identify the patient, the planned procedure and any known allergies to drugs or drug products. The patient already had epidural and Lopez catheter in place as part of the labor process. The patient was placed in dorsal supine position on the operative table. A bump was placed under her right side to give a leftward tilt. SCDs were placed and abdomen was prepped and draped in normal sterile fashion. A Pfannenstiel type skin incision was made with the scalpel, carried down to the underlying layer of fascia with the Bovie. The incision was extended laterally with sharp dissection using Cunha scissors. The superior edge of the fascial incision was elevated with Ismael clamps and rectus muscles were dissected off sharply with Cunha scissors. Kochers were then moved to the inferior edge of the fascial incision and again scissors were used to sharply dissect the muscles off the fascia. The muscles were then in the midline. Peritoneum was identified and entered bluntly. Incision was extended with excellent visualization of intraabdominal contents. Bladder blade was placed. A bladder flap was not made. A low transverse uterine incision was made with the scalpel; this was extended bluntly. Infant's head was grasped and elevated out through the incision. With gentle maneuvering the rest of the infant's body readily delivered. The infant was immediately crying upon delivery. The nursery staff suctioned the 's nose and mouth with bulb suction. Delayed cord clamping of 45 seconds was performed. The cord was then doubly clamped and cut. The infant was taken to the warmer. Cord blood sample was taken. The placenta was then delivered spontaneously with gentle traction and fundal massage. The uterus was exteriorized, cleared of all clots and debris with sterile moist lap sponges. The uterine incision was repaired in a double layer with #1 chromic, first a running locked layer, then an imbricating layer. The posterior cul-de-sac was irrigated. The uterus was returned to the abdomen. Excellent hemostasis was noted. The gutters were irrigated as well. The peritoneum was closed in a running layer with 2-0 chromic. The fascia was closed in a running layer with #1 Vicryl. Irrigation with suction was performed. Closure of the subcutaneous tissue was performed with 2-0 chromic in interrupted fashion. The skin was closed in a subcuticular fashion with 4-0 Monocryl. The skin was cleaned and dried and a standard dressing was placed. The patient tolerated the procedure well. The procedure concluded at this point. DISPOSITION The patient's estimated length of stay is three postoperative days. Her is nursery status. MD ANGELA Rascon/AZUL /8:49 PM /6:02 AM MTDD
[2017-04-05] MEDS ORDERED: OXYTOCIN 30 UNITS-500ML PREMIX 500 ML IV PRN (07:00)
[2017-04-05] MEDS: LACTATED RINGER'S 1000 ML INJ 1,000 ML IV SCH ×2 (07:47→12:04)
[2017-04-05 08:00] VITALS: BP 118/70; PULSE 85; RESP 16; TEMP 97.6; O2SAT 97
[2017-04-05] MEDS ORDERED: IRON SUCROSE 100 MG/5 ML VIAL IV PUSH ONE (08:00)
[2017-04-05] MEDS: INSULIN NovoLIN REGULAR SUPPLEMENTAL SCALE SQ SCH ×3 (08:11→18:00)
[2017-04-05] MEDS: INSULIN HUMAN REGULAR 1,000 UNITS/10 ML VIAL SQ SCH (08:11)
[2017-04-05] MEDS: INSULIN HUMAN NPH 1,000 UNITS/10 ML VIAL SQ SCH (08:23)
--- NOTE | 2017-04-05 08:47 | HHI.OB ---
Subjective Post Operative Day: 1 Remarks feeling well and moving ok baby great accucheck low and holding regular but giving NPH needs counseling Objective Vitals/I&O Vital Signs Date Time Temp Pulse Resp B/P (MAP) Pulse Ox O2 Delivery O2 Flow Rate FiO2 04/05/17 05:14 108/59 (75) 04/05/17 05:14 98.3 71 20 04/05/17 00:00 97.6 80 16 113/69 (84) 100 04/04/17 22:11 97.9 04/04/17 22:00 73 20 125/64 (84) 04/04/17 21:45 72 18 125/52 (76) 04/04/17 21:30 76 18 115/62 (79) 04/04/17 21:15 77 21 119/68 (85) 04/04/17 21:00 14 04/04/17 21:00 97.7 75 10 122/59 (80) 04/04/17 19:00 90 123/63 (83) 04/04/17 18:54 20 04/04/17 18:45 97 113/62 (79) 04/04/17 18:45 98.7 04/04/17 18:36 20 04/04/17 18:30 89 117/63 (81) 04/04/17 18:15 119 114/63 (80) 04/04/17 18:00 113 119/62 (81) 04/04/17 17:45 20 04/04/17 17:45 91 129/72 (91) 04/04/17 17:30 98 131/92 (105) 04/04/17 17:16 88 139/81 (100) 04/04/17 17:00 83 135/81 (99) 04/04/17 16:45 79 120/71 (87) 04/04/17 16:40 80 04/04/17 16:35 79 04/04/17 16:30 80 114/57 (76) 04/04/17 16:30 77 04/04/17 16:29 98.8 20 04/04/17 16:25 78 04/04/17 16:20 79 04/04/17 16:15 78 115/58 (77) 04/04/17 16:15 78 04/04/17 16:10 76 04/04/17 16:05 78 04/04/17 16:00 78 04/04/17 16:00 77 113/57 (75) 04/04/17 15:55 76 04/04/17 15:50 76 04/04/17 15:46 74 111/54 (73) 04/04/17 15:45 78 04/04/17 15:39 20 04/04/17 15:35 85 04/04/17 15:30 80 125/71 (89) 04/04/17 15:30 79 04/04/17 15:25 89 04/04/17 15:20 84 04/04/17 15:15 93 04/04/17 15:15 85 114/67 (83) 04/04/17 14:56 75 101/58 (72) 04/04/17 14:55 82 04/04/17 14:50 78 04/04/17 14:50 84 109/58 (75) 04/04/17 14:49 20 04/04/17 14:45 74 04/04/17 14:25 82 04/04/17 14:25 84 04/04/17 14:21 76 119/63 (81) 04/04/17 14:20 78 04/04/17 14:15 77 04/04/17 14:10 79 04/04/17 14:05 78 04/04/17 14:01 74 148/88 (108) 04/04/17 14:00 76 04/04/17 13:55 77 04/04/17 13:50 73 04/04/17 13:45 72 04/04/17 13:40 72 04/04/17 13:35 76 04/04/17 13:31 74 129/71 (90) 04/04/17 13:30 75 04/04/17 13:10 97 04/04/17 13:05 107 04/04/17 13:01 89 136/67 (90) 04/04/17 13:00 86 04/04/17 12:02 98.8 20 04/04/17 12:01 91 138/83 (101) 04/04/17 12:00 90 04/04/17 11:31 79 133/71 (91) 04/04/17 11:30 77 04/04/17 11:10 77 04/04/17 11:05 77 04/04/17 11:01 77 131/74 (93) 04/04/17 11:00 78 04/04/17 10:41 126/75 (92) 04/04/17 10:41 88 04/04/17 10:40 79 04/04/17 10:35 79 04/04/17 10:30 80 04/04/17 09:00 20 04/04/17 09:00 98.2 04/04/17 08:55 78 04/04/17 08:52 80 135/80 (98) 04/04/17 08:50 96 Result Diagram: 04/05/17 0530 Objective Remarks GENERAL: Well-nourished, well-developed patient. CARDIOVASCULAR: Regular rate and rhythm without murmurs, gallops, or rubs. RESPIRATORY: Breath sounds equal bilaterally. No accessory muscle use. ABDOMEN/GI: Abdomen soft, non-tender, bowel sounds present. Incision: Clean, dry and intact. Fundus: Firm, non-tender at umbilicus. GENITOURINARY: Light to moderate bleeding. EXTREMITIES: No cyanosis or edema, non-tender, without signs of DVT. Medications and IVs Current Medications Medications (Trade) Dose Ordered Sig/Venkata Route Start Time Stop Time Status Last Admin Lactated Ringer's 1,000 ml @ 100 mls/hr Q10H IV 04/05/17 01:49 04/05/17 21:48 04/05/17 07:47 Oxytocin 500 ml @ 100 mls/hr UNSCH X1 PRN IV 04/05/17 07:00 04/06/17 06:59 (NS Flush) 2 ml BID IV FLUSH 04/04/17 21:00 (NS Flush) 2 ml UNSCH PRN IV FLUSH 04/04/17 21:00 (Mylicon Chew) 80 mg QID PRN PO 04/04/17 21:00 (Toradol Inj) 30 mg Q6H IM 04/04/17 21:00 04/05/17 20:59 04/05/17 03:18 (Percocet 5-325 Mg) 1 tab Q4H PRN PO 04/04/17 21:00 (Percocet 5-325 Mg) 2 tab Q4H PRN PO 04/04/17 21:00 (Bri-Colace) 2 tab Q12H PRN PO 04/04/17 21:00 (Ambien) 5 mg HS PRN PO 04/04/17 21:00 (M-M-R Ii Inj) 0.5 ml ONCE ONCE SQ 04/05/17 16:00 04/05/17 16:01 (Boostrix Inj) 0.5 ml ONCE ONCE IM 04/05/17 16:00 04/05/17 16:01 (Zofran Inj) 4 mg Q6H PRN IV PUSH 04/04/17 21:00 (Benadryl Inj) 25 mg Q4H PRN IV PUSH 04/04/17 21:00 (NovoLIN R INJ) 6 units DAILY@08 SQ 04/05/17 08:00 (NovoLIN R INJ) 17 units DAILY@17 SQ 04/05/17 17:00 (NovoLIN N INJ) 13 units DAILY@08 SQ 04/05/17 08:00 04/05/17 08:23 (NovoLIN N INJ) 13 units HS SQ 04/05/17 21:00 (NovoLIN R SUPPLEMENTAL SCALE) 1 TIDAC SQ 04/05/17 08:00 Miscellaneous Information NO SYSTEMIC NARCOTICS TO BE GIVEN FO... UNSCH PRN .XX 04/04/17 22:45 04/05/17 22:44 (Narcan Inj) 0.4 mg UNSCH PRN IV PUSH 04/04/17 22:45 04/05/17 22:44 (Benadryl Inj) 25 mg Q6H PRN IV PUSH 04/04/17 22:45 04/05/17 22:44 04/05/17 05:31 (Benadryl) 50 mg Q6H PRN PO 04/04/17 22:45 04/05/17 22:44 Miscellaneous Information ALL NURSING DEPARTMENTS UNSCH PRN .XX 04/04/17 22:45 04/05/17 22:44 Acetaminophen 100 ml @ 400 mls/hr Q6H IV 04/05/17 03:00 04/05/17 21:14 04/05/17 03:17 Assessment/Plan Problem List: (1) Diabetes mellitus affecting in third trimester ICD Codes: O24.913 - Unspecified diabetes mellitus in , third trimester Status: Chronic (2) GBS bacteriuria ICD Codes: R82.71 - Bacteriuria Status: Chronic (3) Term ICD Codes: Z34.80 - Encounter for supervision of other normal , unspecified trimester Status: Acute Assessment and Plan 26 yo G1 with betts IUP at 38wks, EDC 04/17/17, admit for term IOL due to poor glycemic control, type 2 diabetic, insulin dependent 1) IOL: start with cytotec tonight, repeat dose if indicated; pt aware of risks including stress or , consents to induction, aware indicated due to poor glycemic control at term 2) T2DM: dx age 20, pt noncompliant with meds prior to , was moderately controlled until last week when log shows consistent 2h PP values > 200 despite proper insulin use; continue insulin dosing at this time, will allow diabetic diet with SS as indicated; doses: regular 12 QAM & 34 w dinner; NPH 26 QAM and 26 QHS; if change to clears will plan hourly accuchecks and SS as indicated 3) 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
[2017-04-05] MEDS ORDERED: IRON SUCROSE INJ 200 MG in SODIUM CHLORIDE 0.9% INJ 100 ML IV ONE (09:15)
[2017-04-05] MEDS: SODIUM CHLORIDE 0.9% FLUSH 10 ML FLUSH IV FLUSH SCH (09:37)
[2017-04-05 12:00] VITALS: BP 117/65; PULSE 80; RESP 18; TEMP 97.7; O2SAT 98
[2017-04-05] MEDS: diphenhydrAMINE HCL 50 MG/ML VIAL IV PUSH PRN (13:32)
[2017-04-05 16:00] VITALS: BP_SYST 109; BP_SYST 118; BP_DIAS 62; BP_DIAS 70; PULSE 64; RESP 18; TEMP 98; O2SAT 99
[2017-04-05] MEDS ORDERED: DIPHTH/TETANUS/ACEL PERTUSSIS (BOOSTER) 0.5 ML VIAL/PFS IM ONE (16:00)
[2017-04-05] MEDS ORDERED: MEASLES, MUMPS, RUBELLA VACCINE 0.5 ML VIAL SQ ONE (16:00)
[2017-04-05] MEDS ORDERED: INSULIN HUMAN REGULAR 1,000 UNITS/10 ML VIAL SQ SCH (17:00)
[2017-04-05] MEDS ORDERED: INSULIN HUMAN REGULAR 1,000 UNITS/10 ML VIAL SQ ONE (18:15)
[2017-04-05] MEDS: IBUPROFEN 600 MG TAB PO PRN (18:20)
[2017-04-05 20:00] VITALS: BP 121/52; PULSE 92; RESP 20; TEMP 97.9; O2SAT 99
[2017-04-05] MEDS ORDERED: INSULIN HUMAN NPH 1,000 UNITS/10 ML VIAL SQ ONE (21:00)
[2017-04-06] VITALS: BP 114/72; PULSE 107; RESP 18; TEMP 98.1; O2SAT 96
[2017-04-06] MEDS: IBUPROFEN 600 MG TAB PO PRN ×3 (01:51→19:59)
[2017-04-06 04:00] VITALS: BP 95/58; PULSE 79; RESP 18; TEMP 97.6; O2SAT 99
[2017-04-06 06:05] LABS: AUTOMATED NEUTROPHIL # 9.9 TH/MM3 (1.8-7.7); BASOPHIL % 0.2 % (0.0-2.0); EOSINOPHIL # 0.2 TH/MM3 (0-0.4); EOSINOPHIL % 1.3 % (0.0-4.0); HEMOGLOBIN 8.4 GM/DL (11.6-15.3); LYMPH % 20.3 % (9.0-44.0); LYMPHOCYTE # 2.8 TH/MM3 (1.0-4.8); MEAN CELL VOLUME 75.1 FL (80.0-100.0); MEAN CORPUSCULAR HEMOGLOBIN 24.2 PG (27.0-34.0); MEAN CORPUSCULAR HGB CONC 32.2 % (32.0-36.0); MEAN PLATELET VOLUME 7.8 FL (7.0-11.0); MONO % 6.6 % (0.0-8.0); MONOCYTE # 0.9 TH/MM3 (0-0.9); NEUT % 71.6 % (16.0-70.0); PLATELET COUNT 214 TH/MM3 (150-450); RED BLOOD COUNT 3.46 MIL/MM3 (4.00-5.30); RED CELL DISTRIBUTION WIDTH 16.2 % (11.6-17.2); WHITE BLOOD COUNT 13.9 TH/MM3 (4.0-11.0)
[2017-04-06 08:00] VITALS: BP 105/67; PULSE 84; RESP 18; TEMP 98.4; O2SAT 100
[2017-04-06] MEDS: INSULIN HUMAN REGULAR 1,000 UNITS/10 ML VIAL SQ SCH (08:38)
[2017-04-06] MEDS: INSULIN NovoLIN REGULAR SUPPLEMENTAL SCALE SQ SCH ×3 (08:38→18:04)
[2017-04-06] MEDS: INSULIN HUMAN NPH 1,000 UNITS/10 ML VIAL SQ SCH (09:33)
[2017-04-06] MEDS: SODIUM CHLORIDE 0.9% FLUSH 10 ML FLUSH IV FLUSH SCH ×2 (10:12→19:30)
[2017-04-06 12:00] VITALS: BP 105/67; PULSE 84; RESP 18; TEMP 98.4; O2SAT 100
--- NOTE | 2017-04-06 12:47 | HHI.OB ---
Subjective Post Operative Day: 2 Remarks Still in lots of pain. No narcotics ordered. BS are fairly well controlled and will follow No flatus. Objective Vitals/I&O Vital Signs Date Time Temp Pulse Resp B/P (MAP) Pulse Ox O2 Delivery O2 Flow Rate FiO2 04/06/17 08:00 98.4 84 18 105/67 (80) 100 04/06/17 04:00 97.6 04/06/17 04:00 79 18 95/58 (70) 99 04/06/17 00:00 114/72 (86) 04/06/17 00:00 98.1 107 18 96 04/05/17 20:00 92 20 121/52 (75) 99 04/05/17 20:00 97.9 04/05/17 16:00 109/62 (78) 04/05/17 16:00 98.0 64 18 118/70 (86) 99 04/05/17 16:00 98.0 64 18 109/62 (78) Result Diagram: 04/06/17 0538 Objective Remarks GENERAL: Well-nourished, well-developed patient. CARDIOVASCULAR: Regular rate and rhythm without murmurs, gallops, or rubs. RESPIRATORY: Breath sounds equal bilaterally. No accessory muscle use. ABDOMEN/GI: Abdomen soft, non-tender, bowel sounds present. Incision: Clean, dry and intact. Fundus: Firm, non-tender at umbilicus. GENITOURINARY: Light to moderate bleeding. EXTREMITIES: No cyanosis or edema, non-tender, without signs of DVT. Medications and IVs Current Medications Medications (Trade) Dose Ordered Sig/Venkata Route Start Time Stop Time Status Last Admin (NS Flush) 2 ml BID IV FLUSH 04/04/17 21:00 (NS Flush) 2 ml UNSCH PRN IV FLUSH 04/04/17 21:00 (Mylicon Chew) 80 mg QID PRN PO 04/04/17 21:00 (Percocet 5-325 Mg) 1 tab Q4H PRN PO 04/04/17 21:00 (Percocet 5-325 Mg) 2 tab Q4H PRN PO 04/04/17 21:00 (Bri-Colace) 2 tab Q12H PRN PO 04/04/17 21:00 (Ambien) 5 mg HS PRN PO 04/04/17 21:00 (Zofran Inj) 4 mg Q6H PRN IV PUSH 04/04/17 21:00 (Benadryl Inj) 25 mg Q4H PRN IV PUSH 04/04/17 21:00 04/05/17 13:32 (NovoLIN N INJ) 13 units DAILY@08 SQ 04/05/17 08:00 04/06/17 09:33 (NovoLIN R SUPPLEMENTAL SCALE) 1 TIDAC SQ 04/05/17 08:00 (Motrin) 600 mg Q8H PRN PO 04/05/17 17:15 04/06/17 11:47 (NovoLIN N INJ) 10 units HS SQ 04/06/17 21:00 Assessment/Plan Problem List: (1) Diabetes mellitus affecting in third trimester ICD Codes: O24.913 - Unspecified diabetes mellitus in , third trimester Status: Chronic (2) GBS bacteriuria ICD Codes: R82.71 - Bacteriuria Status: Chronic (3) Term ICD Codes: Z34.80 - Encounter for supervision of other normal , unspecified trimester Status: Acute Assessment and Plan 26 yo G1 with betts IUP at 38wks, EDC 04/17/17, admit for term IOL due to poor glycemic control, type 2 diabetic, insulin dependent 1) IOL: start with cytotec tonight, repeat dose if indicated; pt aware of risks including stress or , consents to induction, aware indicated due to poor glycemic control at term 2) T2DM: dx age 20, pt noncompliant with meds prior to , was moderately controlled until last week when log shows consistent 2h PP values > 200 despite proper insulin use; continue insulin dosing at this time, will allow diabetic diet with SS as indicated; doses: regular 12 QAM & 34 w dinner; NPH 26 QAM and 26 QHS; if change to clears will plan hourly accuchecks and SS as indicated 3) 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 Windy Kong MD Apr 06, 2017 12:47
[2017-04-06] MEDS ORDERED: MORPHINE SULFATE 2 MG/ML INJ IV PUSH STA (13:06)
[2017-04-06] MEDS: oxyCODONE/ACETAMINOPHEN 5 MG/325 MG TAB PO PRN ×3 (13:34→22:12)
[2017-04-06] MEDS ORDERED: INSULIN HUMAN REGULAR 1,000 UNITS/10 ML VIAL SQ SCH (17:00)
[2017-04-06 20:00] VITALS: BP 125/74; PULSE 94; RESP 18; TEMP 97.9
[2017-04-06] MEDS ORDERED: INSULIN HUMAN NPH 1,000 UNITS/10 ML VIAL SQ SCH ×2 (21:00)
[2017-04-07] MEDS: oxyCODONE/ACETAMINOPHEN 5 MG/325 MG TAB PO PRN ×2 (01:57→05:57)
[2017-04-07] MEDS: IBUPROFEN 600 MG TAB PO PRN ×2 (05:57→15:03)
--- NOTE | 2017-04-07 06:45 | HHI.OB ---
Subjective Post Operative Day: 3 Remarks Still in pain but refused her motrin at 0400. Mother is very upset as she sees her daughter in pain but she is not compliant with her meds Mother is very aggressive and yelling at the medical team present. Saying she is getting a cardiovascular surgeon. She is very ugly to the team. She was in tremendous pain yesterday and the team got morphine for her right away and then she also refused that. Objective Vitals/I&O Vital Signs Date Time Temp Pulse Resp B/P (MAP) Pulse Ox O2 Delivery O2 Flow Rate FiO2 04/06/17 20:00 97.9 18 04/06/17 20:00 94 125/74 (91) 04/06/17 12:00 84 18 105/67 (80) 100 04/06/17 12:00 98.4 04/06/17 08:00 98.4 84 18 105/67 (80) 100 Result Diagram: 04/06/17 0538 Objective Remarks GENERAL: Well-nourished, well-developed patient. CARDIOVASCULAR: Regular rate and rhythm without murmurs, gallops, or rubs. RESPIRATORY: Breath sounds equal bilaterally. No accessory muscle use. ABDOMEN/GI: Abdomen soft, non-tender, bowel sounds present. Incision: Clean, dry and intact. Fundus: Firm, non-tender at umbilicus. GENITOURINARY: Light to moderate bleeding. EXTREMITIES: No cyanosis or edema, non-tender, without signs of DVT. Medications and IVs Current Medications Medications (Trade) Dose Ordered Sig/Venkata Route Start Time Stop Time Status Last Admin (NS Flush) 2 ml BID IV FLUSH 04/04/17 21:00 (NS Flush) 2 ml UNSCH PRN IV FLUSH 04/04/17 21:00 (Mylicon Chew) 80 mg QID PRN PO 04/04/17 21:00 (Percocet 5-325 Mg) 1 tab Q4H PRN PO 04/04/17 21:00 (Percocet 5-325 Mg) 2 tab Q4H PRN PO 04/04/17 21:00 04/07/17 05:57 (Bri-Colace) 2 tab Q12H PRN PO 04/04/17 21:00 (Ambien) 5 mg HS PRN PO 1/4/18 21:00 (Zofran Inj) 4 mg Q6H PRN IV PUSH 04/04/17 21:00 (Benadryl Inj) 25 mg Q4H PRN IV PUSH 04/04/17 21:00 04/05/17 13:32 (NovoLIN N INJ) 13 units DAILY@08 SQ 04/05/17 08:00 04/06/17 09:33 (NovoLIN R SUPPLEMENTAL SCALE) 1 TIDAC SQ 04/05/17 08:00 (Motrin) 600 mg Q8H PRN PO 04/05/17 17:15 04/07/17 05:57 (NovoLIN N INJ) 10 units HS SQ 04/06/17 21:00 04/06/17 19:59 Assessment/Plan Problem List: (1) Diabetes mellitus affecting in third trimester ICD Codes: O24.913 - Unspecified diabetes mellitus in , third trimester Status: Chronic (2) GBS bacteriuria ICD Codes: R82.71 - Bacteriuria Status: Chronic (3) Term ICD Codes: Z34.80 - Encounter for supervision of other normal , unspecified trimester Status: Acute Assessment and Plan POD #3 Non compliant and giving the entire staff a hard time. Diabetes and she needs follow up for this,. Blood sugars are fairly well controlled Will continue her insulin at 13U NPH in am, 15NPH in the pm and follow up in one week Condiser d/c home today once baby is cleared Note...Mom is out in hallway and very upset and is callling the police. Called nursing substation electrician supervisor and security. She is out of control and has been very rude and nasty to the nursing staff. Windy Kong MD Apr 07, 2017 06:45
[2017-04-07] MEDS ORDERED: OXYC1TAB63 PO (06:49)
[2017-04-07] MEDS ORDERED: IBUP-232 PO (06:49)
--- NOTE | 2017-04-07 06:50 | HHI.DCPOC ---
Discharge Care Plan Diagnosis: (1) Diabetes (2) Arrested active labor, delivered, current hospitalization (3) S/P primary low transverse Report Symptoms to Your Doctor -Temperature above 100.5 degrees -Redness, of incision or excessive or foul smelling drainage -Unusual pain or calf pain -Increased vaginal bleeding -Painful or difficulty urinating -Feelings of extreme sadness or anxiety after 2 weeks Goals to Promote Your Health * To prevent worsening of your condition and complications * To maintain your health at the optimal level Directions to Meet Your Goals Take your medications as prescribed Follow your dietary instruction Follow activity as directed Ensure plenty of rest for recovery Drink fluids for hydration Keep your appointments as scheduled Take your immunizations and boosters as scheduled If your symptoms worsen call your PCP, if no PCP go to Urgent Care Center or Emergency Room Smoking is Dangerous to Your Health. Avoid second hand smoke Call the 24-hour crisis hotline for domestic abuse at Windy Kong MD Apr 07, 2017 06:50
[2017-04-07 08:00] VITALS: BP 127/81; PULSE 77; RESP 20; TEMP 97; O2SAT 0
[2017-04-07] MEDS: INSULIN HUMAN NPH 1,000 UNITS/10 ML VIAL SQ SCH (09:03)
[2017-04-07 12:00] VITALS: BP 125/70; PULSE 84; RESP 20; TEMP 96.2; O2SAT 0
== END 2017-04-07 15:44 | disposition home or self-care (01) | DRG 766 ==
LOC: H2EB 21:02 → H1EA 04-04 22:13 → UNDODISIN 04-06 12:05
PROVIDERS: ADMIT Obstetrics & Gynecology; ATTEND Obstetrics & Gynecology
PROC: 10907ZC Drainage of Amniotic Fluid, Therapeutic from Products of Conception, Via Natural or Artificial Opening (ICD-10-PCS; 2017-04-03)
PROC: 10D00Z1 Extraction of Products of Conception, Low, Open Approach (ICD-10-PCS; principal; 2017-04-04)
PROC: 3E033VJ Introduction of Other Hormone into Peripheral Vein, Percutaneous Approach (ICD-10-PCS; 2017-04-04)
PROC: 10H07YZ Insertion of Other Device into Products of Conception, Via Natural or Artificial Opening (ICD-10-PCS; 2017-04-04)
PROC: 3E0R3BZ Introduction of Anesthetic Agent into Spinal Canal, Percutaneous Approach (ICD-10-PCS; 2017-04-04)
PROC: 00HU33Z Insertion of Infusion Device into Spinal Canal, Percutaneous Approach (ICD-10-PCS; 2017-04-04)
DX: O24.12 Pre-existing type 2 diabetes mellitus, in childbirth (principal); E11.65 Type 2 diabetes mellitus with hyperglycemia; Z79.4 Long term (current) use of insulin; O99.824 Streptococcus B carrier state complicating childbirth; O76 Abnormality in fetal heart rate and rhythm complicating labor and delivery; O62.1 Secondary uterine inertia; O90.81 Anemia of the puerperium; D64.9 Anemia, unspecified; Z37.0 Single live birth; Z3A.38 38 weeks gestation of pregnancy; Z91.19 Patient's noncompliance with other medical treatment and regimen
CPT/HCPCS: 59025; 80307; 81001; 82948; 85025; 86900; 86901; 87086; J0131; J0690; J1200; J1756; J1815; J1885; J2274; J2370; J2405; J2540; J2590; J3010; J7120; J7121